=== PATIENT | female | born 1990 | race Two or more races ===

== ENCOUNTER 2020-07-26 09:57 | Emergency (ER) | payer OTHER, SELFPAY ==
[2020-07-26 11:30] VITALS: BP 135/93; PULSE 85; RESP 18; TEMP 37.1; O2SAT 98; BMI 28.3
--- NOTE | 2020-07-26 12:12 | ED_ITS ---
HPI - Allergic Reaction General Chief complaint: Allergic Reaction Stated complaint: allergic reaction Time Seen by Provider: 07/26/20 11:51 Source: patient Mode of arrival: ambulatory Limitations: no limitations History of Present Illness HPI narrative: Patient presents to ED for recurrence allergic reaction. Patient states after having dinnder on Sunday which included turkey she usually makes to eat and than she had swelling of lips and sensation of throat closing and itchy sensation 15 minutes after eating a turkey. Patient states that yesterday she has some caramel a coconut cookie at the eating she has swelling of lips itchy rash on face and sensation of throat closing. Patient states it never happened before. Patient only known allergy is to certain medication. Patient denies being on any new medications recently. MD complaint: allergic reaction Related Data Previous Rx's Medication Instructions Recorded hydroxyzine HCl 25 mg tablet 25 mg PO BEDTIME PRN 90 Days #90 03/23/20 tab etonogestrel 0.12 mg-ethinyl 1 vag ring VAGINAL .COMPLEX 21 06/30/20 estradiol 0.015 mg/24 hr vaginal Days #1 ring ring diphenhydramine HCl [Benadryl] 25 mg PO TID PRN #30 cap 07/26/20 epinephrine [EpiPen] 0.3 mg IM Q10M PRN #2 ea 07/26/20 famotidine [Pepcid] 20 mg PO BID #20 tab 07/26/20 prednisone 40 mg PO DAILY #10 tab 07/26/20 Allergies Allergy/AdvReac Type Severity Reaction Status Date / Time simethicone [From GAS-X] Allergy Intermediate HIVES Verified 07/26/20 11:30 codeine [CODEINE] Allergy Mild HIVES Verified 07/26/20 11:30 metoprolol Allergy Unknown fatigue Verified 07/26/20 11:30 1st Relief [place] Allergy Unknown unknown Uncoded 05/10/20 12:59 sensitivity to gluten Allergy Unknown Unknown Uncoded 05/10/20 12:59 Review of Systems Review of Systems: Yes all other systems are reviewed and are negative Constitutional: Constitutional: Reports as per HPI and Reports no additional constitutional complaints Eyes: Eyes: Reports as per HPI and Reports no additional eye complaints ENT: Reports system reviewed and no additional complaints, except as documented and Reports as per HPI Comments: Itchy throat, sensation of throat closing, swelling of lips Cardiovascular: Cardiovascular: Reports as per HPI and Reports no additional cardiovascular complaints Respiratory: Respiratory: Reports as per HPI and Reports no additional respiratory complaints Gastrointestinal: Gastrointestinal: Reports as per HPI and Reports no additional gastrointestinal complaints Genitourinary: Genitourinary: Reports no additional female genitourinary complaints and Reports as per HPI Musculoskeletal: Musculoskeletal: Reports no additional musculoskeletal complaints and Reports as per HPI Neurologic: Reports system reviewed and no additional complaints, except as documented and Reports as per HPI Psychiatric: Psychiatric: Reports no additional psychiatric complaints and Reports as per HPI [facility] Past Medical History Medical History (Updated 07/26/20 @ 12:20 by BARB Patterson) Adenomyosis Anxiety IBS (irritable bowel syndrome) Irregular menses Panic disorder without agoraphobia PCOS (polycystic ovarian syndrome) Vaso vagal episode Surgical History (Updated 05/04/20 @ 15:39 by HELIO Acuña) Hx of section Family History Family History (Updated 05/04/20 @ 15:42 by HELIO Acuña) Father No problems noted. Mother Breast cancer Epilepsy Maternal Grandfather Diabetes Maternal Grandmother No problems noted. Paternal Grandfather No problems noted. Paternal Grandmother Dementia Social History Social History Advance Directives: No Advance Directives Information Provided: Yes Patient : No Physical Exam Vital Signs: Vital Signs: Last Vital Signs Temp 98.7 F 07/26/20 11:30 Pulse 85 07/26/20 11:30 Resp 18 07/26/20 11:30 BP 135/93 H 07/26/20 11:30 Pulse Ox 98 07/26/20 11:30 Body Mass Index 28.3 Const: General: cooperative, healthy appearing, comfortable, no acute distress, well developed, alert and awake Orientation/consciousness: patient oriented x3 HENMT: Other: Negative for any swelling of lips. Negative for swelling of tongue. Uvula is midline. Clear lungs on auscultation. Patient is speaking in full sentences and not using accessory muscles. Head: Yes normal to inspection, Yes No palpable skull fracture present, Yes normocephalic and Yes atraumatic Eyes: General: appearance normal, both eyes and all related structures Neck: Neck: Yes normal visual inspection, Yes full ROM, Yes no lymphadenopathy, Yes no meningeal signs, Yes trachea midline, Yes supple and No tender Chest: Chest palpation & inspection: normal inspection of the chest and normal palpation of entire chest wall Resp: Effort & Inspection: normal respiratory effort and able to speak in complete sentences Auscultation: clear to auscultation bilaterally Cardio: Jugular venous distension: no JVD Heart sounds: S1 normal heart sound present and S2 normal heart sound present GI: Inspection: Yes normal to inspection and No abdominal wall ecchymosis Palpation (GI): Soft to palpation, not firm, nontender, no guarding and not r igid : General: No CVA tenderness and Yes no CVA tenderness Back/Spine/Pelvis: Back: no CVA tenderness, No CVA tenderness and No back tenderness Skin: General skin exam: no rashes or lesions noted and elasticity normal Neuro: General: patient oriented x3, no meningeal signs and CN's II-XI intact bilaterally Cranial nerves: Yes CN's II-XII intact bilaterally Extrem: General: Yes normal to inspection and Yes full ROM Psych: Appearance: grossly normal, well kempt and not disheveled Course Course Course Narrative: History states allergic reaction. Reevaluation(s) Reevaluation #1: Presently patient is not having any allergic reaction but from history seemed like patient has allergic reaction within the past 2 days. Patient will be sent home with allergy cocktail including EpiPen. Patient informed to follow-up with PCP for patch test MDM - Allergic Reaction MDM Narrative Medical decision making narrative: Allergic reaction Discharge Plan Discharge Clinical Impression: Allergic reaction Patient Disposition: Home, Self-Care Instructions: General Allergic Reaction (ED) Additional Instructions: Return to the ED immediately for shortness of breath, sensation of throat closing, swelling of lips, swelling of tongue, weakness, dizziness, chest pain, or any other concerning symptoms. Please follow-up with your PCP for referral to senior quality control inspector for patch test. EpiPen use for anaphylactic reaction. Do not inject into chest. Prescriptions: New prednisone 20 mg tablet 40 mg PO DAILY Qty: 10 RF: 0 famotidine [Pepcid] 20 mg tablet 20 mg PO BID Qty: 20 RF: 0 diphenhydramine HCl [Benadryl] 25 mg capsule 25 mg PO TID PRN (Reason: allergic reaction) Qty: 30 RF: 0 epinephrine [EpiPen] 0.3 mg/0.3 mL auto-injector 0.3 mg IM Q10M PRN (Reason: anaphylaxis) Qty: 2 RF: 0 No Action hydroxyzine HCl 25 mg tablet 25 mg PO BEDTIME PRN (Reason: anxiety) 90 Days Qty: 90 RF: 0 etonogestrel-ethinyl estradiol 0.12-0.015 mg/24 hr ring 1 vag ring vaginal .COMPLEX 21 Days Qty: 1 RF: 2 Referrals: Americo Faria, [employer] [Primary Care Provider] - 2 days (Allergic reaction. Needs patch test) Stand Alone Forms: Work/School Release Interventions: ED Discharge Assessment Last Done: 07/26/20 12:53 Discharge Date/Time: 07/26/20 12:54 Print Language: Bahamian
== END 2020-07-26 12:54 | disposition home or self-care (01) ==
PROVIDERS: Emergency Provider Emergency Medicine; PCP Nurse Practitioner Family
DX: L50.0 Allergic urticaria (principal); Z79.899 Other long term (current) drug therapy
CPT/HCPCS: 99283

== ENCOUNTER 2020-09-16 13:37 | Outpatient (REF) | payer OTHER, SELFPAY ==
[2020-09-16 15:05] LABS: MANUAL DIFF FLAG NO
[2020-09-16 15:06] LABS: Basophils Absolute Auto 0.1 X10*3/uL (0.0-0.2); Basophils Percent Auto 0.9 % (0-2); Eosinophils Absolute Auto 0.2 X10*3/uL (0.0-0.4); Eosinophils Percent Auto 2.3 % (0-4); Hematocrit 40.6 % (37-47); Hemoglobin 13.6 g/dl (12.0-16.0); Imm Gran Abs Auto 0.02 X10*3/uL (0.00-0.03); Imm Gran Pct Auto 0.3 % (0.0-0.4); Lymphocytes Absolute Auto 1.9 X10*3/uL (1.2-4.9); Lymphocytes Percent Auto 26.3 % (20-40); Mean Corpuscular HGB Conc 33.5 g/dl (31.0-35.0); Mean Corpuscular Volume 92.5 fL (80-98); Mean Platelet Volume 9.8 fL (9.4-12.3); Monocytes Absolute Auto 0.4 X10*3/uL (0.1-1.2); Monocytes Percent Auto 5.8 % (2-11); Neutrophils Absolute Auto 4.5 X10*3/uL (2.0-8.3); Neutrophils Percent Auto 64.4 % (45-73); Platelet Count 286 X10*3/uL (160-400); Red Blood Count 4.39 X10*6/uL (4.20-5.50); Red Cell Distribution Width 12.9 % (11.0-16.0)
[2020-09-16 15:34] LABS: Alanine Aminotransferase 8 U/L (0-31); Alkaline Phosphatase 55 U/L (39-117); Anion Gap 13 (12-20); Aspartate Amino Transferase 13 U/L (5-31); Bilirubin Total 0.9 mg/dL (0.0-1.0); Blood Urea Nitrogen 11 mg/dL (9-16); Calcium 9.2 mg/dL (8.4-10.2); Carbon Dioxide 23 mmol/L (22-29); Chloride 107 mmol/L (96-108); Estimated Glomerular Filt Rate > 60; Glucose Random 102 mg/dL (60-115); Potassium 3.9 mmol/L (3.3-5.1); Sodium 139 mmol/L (135-145); Total Protein 7.4 g/dL (6.5-8.0)
[2020-09-16 15:53] LABS: TSH reflex Free T4 0.73 uIU/mL (0.32-4.0)
[2020-09-23 16:08] LABS: Transglutaminase Ab IgG 1 U/mL; Transglutaminase IgA 1 U/mL
== END 2020-09-16 13:38 | disposition home or self-care (01) ==
LOC: HO.LAB 13:37
PROVIDERS: PCP Nurse Practitioner Family; Referring Provider Nurse Practitioner Family; Visit Provider Nurse Practitioner
DX: K59.04 Chronic idiopathic constipation (principal); R14.0 Abdominal distension (gaseous); Z83.71 Family history of colonic polyps; K21.9 Gastro-esophageal reflux disease without esophagitis
CPT/HCPCS: 36415; 80053; 83516; 84443; 85025

== ENCOUNTER 2020-10-04 15:14 | Outpatient (REF) | payer OTHER, SELFPAY ==
[2020-10-06 05:42] LABS: Immunoglobulin E 145 kU/L (<OR=114)
== END 2020-10-04 15:15 | disposition home or self-care (01) ==
LOC: HO.LAB 15:14
PROVIDERS: PCP Nurse Practitioner Family; Visit Provider Nurse Practitioner Family
DX: T78.1XXA Other adverse food reactions, not elsewhere classified, initial encounter (principal)
CPT/HCPCS: 36415; 82785; 83520; 86003

== ENCOUNTER → 2020-10-28 14:02 | Outpatient (BNVA) | payer OTHER, SELFPAY | PROVIDERS: PCP Nurse Practitioner Family; Visit Provider Nurse Practitioner ==

== ENCOUNTER 2020-11-30 16:47 | Outpatient (REF) | payer OTHER, SELFPAY ==
--- NOTE | ~2020-11-30 | XR_ITS ---
EXAMINATION: XR FOOT, RIGHT CLINICAL INFORMATION: Trauma, pain COMPARISON: None TECHNIQUE: AP, lateral, and oblique views of the right foot. FINDINGS: There is no acute or healing fracture, dislocation, destructive process. Bony mineralization appears normal. There is no joint narrowing or erosive changes. The subtalar joint is unremarkable. The retrocalcaneal recess is preserved. XR/XR foot RT min 3V IMPRESSION: No fracture or dislocation.
== END 2020-11-30 16:48 | disposition home or self-care (01) ==
LOC: HO.HMGCX 16:47
PROVIDERS: PCP Nurse Practitioner Family; Visit Provider Internal Medicine
DX: Z13.89 Encounter for screening for other disorder (principal)
CPT/HCPCS: 73630

== ENCOUNTER → 2021-01-27 09:24 | Outpatient (BNVA) | payer OTHER, SELFPAY | PROVIDERS: PCP Internal Medicine; Referring Provider Nurse Practitioner Family; Visit Provider Nurse Practitioner | DX: K21.9 Gastro-esophageal reflux disease without esophagitis (principal); K59.04 Chronic idiopathic constipation; K63.89 Other specified diseases of intestine; Z83.71 Family history of colonic polyps | CPT/HCPCS: 99212 ==

== ENCOUNTER → 2021-02-22 15:45 | Outpatient (BNVA) | payer OTHER, SELFPAY | PROVIDERS: PCP Internal Medicine; Referring Provider Nurse Practitioner Family; Visit Provider Nurse Practitioner | DX: K21.9 Gastro-esophageal reflux disease without esophagitis (principal); K59.04 Chronic idiopathic constipation; R10.84 Generalized abdominal pain; R14.0 Abdominal distension (gaseous) | CPT/HCPCS: 99202 ==

== ENCOUNTER 2021-04-08 08:46 | Outpatient (REF) | payer OTHER, SELFPAY ==
[2021-04-08 12:07] LABS: Alanine Aminotransferase 15 U/L (0-31); Albumin Level 4.3 g/dL (3.5-5.0); Alkaline Phosphatase 71 U/L (39-117); Anion Gap 12 (12-20); Aspartate Amino Transferase 16 U/L (5-31); Bilirubin Total 0.6 mg/dL (0.0-1.0); Blood Urea Nitrogen 15 mg/dL (9-16); Calcium 9.7 mg/dL (8.4-10.2); Carbon Dioxide 28 mmol/L (22-29); Chloride 105 mmol/L (96-108); Cholesterol 203 mg/dL; Estimated Glomerular Filt Rate > 60; Glucose Fasting 99 mg/dL (60-99); HDL Cholesterol 63 mg/dL; LDL Cholesterol Calculated 126 mg/dl; Potassium 4.5 mmol/L (3.3-5.1); Sodium 140 mmol/L (135-145); Total Protein 7.5 g/dL (6.5-8.0); Triglycerides 73 mg/dL
[2021-04-08 12:13] LABS: TSH reflex Free T4 0.98 uIU/mL (0.32-4.0)
== END 2021-04-08 08:47 | disposition home or self-care (01) ==
LOC: HO.HMGCLDS 08:46
PROVIDERS: Nurse Practitioner; PCP Nurse Practitioner Family; Visit Provider Nurse Practitioner Family
DX: K21.9 Gastro-esophageal reflux disease without esophagitis (principal)
CPT/HCPCS: 36415; 80053; 80061; 84443

== ENCOUNTER 2021-04-11 07:46 | Outpatient (REF) | payer OTHER, SELFPAY ==
[2021-04-11 12:08] LABS: Appearance Urine CLEAR; Color Urine YELLOW; Glucose Urine UA NEG (NEG); Leukocyte Esterase Urine 1+ (NEG); Nitrite Urine NEG (NEG); UACC Culture Trigger YES; Urine Blood TRACE (NEG); Urine Ketones NEG (NEG); Urine Protein NEG (NEG-TRACE)
[2021-04-11 13:09] LABS: RBC Urine 0 /HPF (0)
[2021-04-11 13:10] LABS: Bacteria Urine 1+ /LPF; Renal Epithelial Cells Urine 1+ /LPF; Squamous Epithelial Cell Urine 2+ /LPF
== END 2021-04-11 07:47 | disposition home or self-care (01) ==
LOC: HO.HMGCLNP 07:46
PROVIDERS: Visit Provider Nurse Practitioner Family
DX: K21.9 Gastro-esophageal reflux disease without esophagitis (principal); E78.5 Hyperlipidemia, unspecified; Z83.71 Family history of colonic polyps; Z80.3 Family history of malignant neoplasm of breast
CPT/HCPCS: 81001; 81003; 87086; 87147

== ENCOUNTER 2021-04-12 06:10 | Outpatient (REF) | payer OTHER, SELFPAY ==
--- NOTE | ~2021-04-12 | CT_ITS ---
EXAMINATION: CT ABDOMEN AND PELVIS WITH CONTRAST CLINICAL INFORMATION: Generalized abdominal pain. COMPARISON: None TECHNIQUE: Multidetector volumetric images were obtained from the superior aspect of the liver through the pubic symphysis following administration 85 mL of Omnipaque 350 intravenous contrast. Sagittal and coronal reformatted images were obtained on the technologist's workstation. Oral contrast: Yes This CT examination was performed using dose optimization techniques as appropriate, variously including the following: *Automated exposure control *Adjustment of mA and/or kV according to patient size (this includes techniques or standardized protocols for targeted exams where dose is matched to indication/reason for exam; i.e. extremities or head) *Use of iterative reconstruction technique DLP: 510 mGy-cm FINDINGS: LUNG BASES: The visualized lung bases are unremarkable. LIVER, GALLBLADDER, AND BILIARY TREE: The liver is normal in size and shape. The liver is low in attenuation suggestive of fatty infiltration. No focal hepatic lesion or biliary ductal dilatation is present. The gallbladder is unremarkable with no evidence of radiopaque gallstones, gallbladder wall thickening, or obvious pericholecystic inflammatory changes. PANCREAS: Unremarkable. SPLEEN: Unremarkable. ADRENAL GLANDS: Unremarkable. KIDNEYS AND URETERS: The kidneys are normal in size, shape, and attenuation. No hydronephrosis, hydroureter, or calculi are seen. No perinephric stranding. BLADDER: Unremarkable. GASTROINTESTINAL TRACT: There is stool throughout the colon questionable for constipation. The small and large bowel is otherwise unremarkable. The appendix is unremarkable. ABDOMINAL WALL: No significant hernia is appreciated. LYMPH NODES: Normal. VASCULAR: Unremarkable. PELVIC VISCERA: There are multiple high-attenuation or enhancing uterine lesions probably representing multiple fibroids. The largest measures 2 x 3 cm. OSSEOUS STRUCTURES: Unremarkable. CT/CT abdomen pelvis w con IMPRESSION: Fatty liver. Constipation. Fibroid uterus. Fleischner guidelines were followed.
[2021-04-12] MEDS: iohexoL 350 MG/ML 100 ML INFUS..BTL 85 ML IV (09:12)
[2021-04-12] MEDS: Barium Sulfate Oral (Mocha) 450 ML ORAL.SUSP 900 ML PO (09:13)
== END 2021-04-12 06:11 | disposition home or self-care (01) ==
LOC: HO.CT 06:10
PROVIDERS: Visit Provider Nurse Practitioner
DX: R10.84 Generalized abdominal pain (principal)
CPT/HCPCS: 74177; Q9967

== ENCOUNTER 2021-05-19 08:27 | Outpatient (REF) | payer OTHER, SELFPAY ==
--- NOTE | ~2021-05-19 | MM_ITS ---
EXAMINATION: MM SCREENING DIGITAL BREAST TOMOSYNTHESIS, BILATERAL CLINICAL INFORMATION: Screening. Asymptomatic. Age 31. Family history breast cancer, mother. The lifetime risk of breast cancer based on the Tyrer-Cuzick Model is 20%. COMPARISON: Bilateral targeted breast ultrasound 12/03/2015. No prior mammography. TECHNIQUE: Digital breast tomosynthesis is performed in both the craniocaudal and mediolateral oblique views along with computer-aided detection (CAD). Synthesized 2D images are generated from the tomosynthesis. FINDINGS: The breasts are heterogeneously dense, which may obscure small masses (ACR BI-RADS breast composition Category c). There are no significant masses, abnormal calcifications, or other abnormalities. No architectural abnormality. The axilla and skin contours are unremarkable. MM/MM tomosynthesis screening BI IMPRESSION: No mammographic evidence of malignancy. ASSESSMENT: BI-RADS 1: Negative RECOMMENDATION: 1. Routine annual mammography screening. 2. The lifetime risk of breast cancer based on the Tyrer-Cuzick Model is 20%. Additional annual adjunct screening with breast MRI may be of benefit in women with a risk score of 20% or greater. This patient's information was entered into a reminder system with a target due date for their next mammogram.
== END 2021-05-19 08:28 | disposition home or self-care (01) ==
LOC: HO.MAMMO 08:27
PROVIDERS: PCP Nurse Practitioner Family; Visit Provider Nurse Practitioner Family
DX: Z12.31 Encounter for screening mammogram for malignant neoplasm of breast (principal)
CPT/HCPCS: 77063; 77067

== ENCOUNTER 2021-05-28 08:37 | Outpatient (REF) | payer OTHER, SELFPAY ==
[2021-05-28 11:24] LABS: Cholesterol 171 mg/dL; HDL Cholesterol 61 mg/dL; LDL Cholesterol Calculated 98 mg/dl; Triglycerides 60 mg/dL
== END 2021-05-28 08:38 | disposition home or self-care (01) ==
LOC: HO.HMGCLDS 08:37
PROVIDERS: Visit Provider Nurse Practitioner Family
DX: E78.5 Hyperlipidemia, unspecified (principal); R13.12 Dysphagia, oropharyngeal phase; R19.8 Other specified symptoms and signs involving the digestive system and abdomen; R22.1 Localized swelling, mass and lump, neck
CPT/HCPCS: 36415; 80061

== ENCOUNTER 2021-06-21 15:35 | Outpatient (REF) | payer OTHER, SELFPAY ==
--- NOTE | ~2021-06-21 | US_ITS ---
EXAMINATION: US SOFT TISSUE OF THE NECK CLINICAL INFORMATION: Other specified symptoms and signs involving the digestive system and abdomen. COMPARISON: None TECHNIQUE: Linear transducer grayscale and color Doppler examination of the bilateral neck. FINDINGS: There are mildly enlarged lymph nodes in the left upper neck measuring 3.1 x 2.6 x 1 cm and 2.6 x 1 x 1.4 cm. 4 comparison the right side of the neck scanned there is borderline enlarged lymph node 2.8 x 1.5 x 1 cm. US/US soft tiss head and/or neck IMPRESSION: Mild bilateral cervical lymphadenopathy uncertain etiology, this could be reactive inflammatory or neoplastic.. Please correlate clinically.
== END 2021-06-21 15:36 | disposition home or self-care (01) ==
LOC: HO.US 15:35
PROVIDERS: PCP Nurse Practitioner Family; Visit Provider Physician Assistant
DX: R19.8 Other specified symptoms and signs involving the digestive system and abdomen (principal); R22.1 Localized swelling, mass and lump, neck
CPT/HCPCS: 76536

== ENCOUNTER 2021-07-06 10:42 | Outpatient (REF) | payer OTHER, SELFPAY ==
--- NOTE | ~2021-07-06 | US_ITS ---
PROCEDURE: ULTRASOUND-GUIDED LEFT CERVICAL LYMPH NODE BIOPSY CLINICAL INFORMATION: Palpable abnormality corresponding to enlarged lymph nodes with the 2 largest lymph nodes being adjacent. COMPARISON: 06/21/2021 TECHNIQUE: Ultrasound-guided fine-needle aspiration biopsy and single core biopsy. FINDINGS: Informed consent was obtained from the patient prior to the procedure. During this process, the procedure and potential alternatives were explained, along with the intended outcome and benefits. The risks of the procedure, as well as the risk of not doing the procedure, were discussed. The patient was given the opportunity to ask questions regarding the procedure and appeared competent to make medical decisions. A signed consent form which documents this discussion was placed in the medical record. Ultrasound scanning demonstrated 2 adjacent large lymph nodes corresponding to palpable abnormality about the left neck. The lymph nodes have thickened cortex of greater than 4 mm in diameter. Using sterile technique and ultrasound guidance two passes of 25-gauge hyperdermic needles were made into the more superior lymph node as well as attempted core biopsy of the superior lymph node with an 18-gauge biopsy needle. There was difficulty of the needle penetrating the lymph node capsule. A single fine-needle aspiration biopsy of the more inferior lymph node was performed. Patient tolerated procedure without difficulty. US/US biopsy lymph node IMPRESSION: Left neck enlarged cervical lymph node biopsy as described.
[2021-07-06] MEDS: Lidocaine HCl 1 % MPF 5 ML VIAL SUBCUT (12:13)
== END 2021-07-06 10:43 | disposition home or self-care (01) ==
LOC: HO.US 10:42
PROVIDERS: Radiology Diagnostic Radiology; Visit Provider Nurse Practitioner Family
DX: R22.1 Localized swelling, mass and lump, neck (principal)
CPT/HCPCS: 36415; 38505; 76942; 88172; 88173; 88177; 88184; 88185; 88305

== ENCOUNTER 2021-07-08 08:08 | Outpatient (REF) | payer OTHER, SELFPAY ==
--- NOTE | ~2021-07-08 | FL_ITS ---
EXAMINATION: XR FLUOROSCOPY UPPER GI WITH AIR CLINICAL INFORMATION: Dysphagia to solids. COMPARISON: None TECHNIQUE: Routine upper GI air-contrast study was performed. Subsequently barium-coated turkey was administered orally in upright lateral view. FINDINGS: Following oral administration of thick barium and effervescent granules there is normal propagation of bolus from the oral cavity through the pharynx, esophagus into stomach without any evidence of obstruction, narrowing or stricture. On placing patient supine and prone lying the course, caliber and peristalsis of the stomach and the duodenum is normal. The mucosal pattern of the stomach and the duodenum is normal. There is moderate gastroesophageal reflux without hiatal hernia. Following oral administration of barium-coated turkey in upright view there is normal propagation of bolus from the oral cavity through the pharynx, esophagus into stomach. FLUOROSCOPY TIME: 2.1 minutes DOSE AREA PRODUCT: 17.738 uGy-m2 (microgray-meter squared) FL/FL upper GI w air IMPRESSION: Moderate gastroesophageal reflux, otherwise unremarkable upper GI exam. There is no esophageal obstruction or narrowing on administration of barium-coated turkey as part of the swallow exam.
== END 2021-07-08 08:09 | disposition home or self-care (01) ==
LOC: HO.XRAY 08:08
PROVIDERS: Visit Provider Physician Assistant
DX: R13.12 Dysphagia, oropharyngeal phase (principal)
CPT/HCPCS: 74246

== ENCOUNTER 2021-07-13 08:52 | Outpatient (REF) | payer OTHER, SELFPAY ==
[2021-07-13 11:33] LABS: MANUAL DIFF FLAG NO
[2021-07-13 11:56] LABS: Basophils Absolute Auto 0.1 X10*3/uL (0.0-0.2); Basophils Percent Auto 1.1 % (0-2); Eosinophils Absolute Auto 0.1 X10*3/uL (0.0-0.4); Eosinophils Percent Auto 2.5 % (0-4); Hematocrit 41.4 % (37.0-47.0); Hemoglobin 13.3 g/dl (12.0-16.0); Imm Gran Abs Auto 0.02 X10*3/uL (0.00-0.03); Imm Gran Pct Auto 0.4 % (0.0-0.4); Lymphocytes Absolute Auto 1.5 X10*3/uL (1.2-4.9); Lymphocytes Percent Auto 26.8 % (20-40); Mean Corpuscular HGB Conc 32.1 g/dl (31.0-35.0); Mean Corpuscular Hemoglobin 29.8 pg (27.0-33.0); Mean Corpuscular Volume 92.8 fL (80.0-98.0); Mean Platelet Volume 10.1 fL (9.4-12.3); Monocytes Absolute Auto 0.3 X10*3/uL (0.1-1.2); Monocytes Percent Auto 5.6 % (2-11); Neutrophils Absolute Auto 3.5 x10*3/uL (2.0-8.3); Neutrophils Percent Auto 63.6 % (45-73); Platelet Count 314 X10*3/uL (160-400); Red Blood Count 4.46 X10*6/uL (4.20-5.50); Red Cell Distribution Width 12.7 % (11.0-16.0); White Blood Count 5.6 X10*3/uL (4.8-10.8)
[2021-07-13 12:14] LABS: Blood Urea Nitrogen 11 mg/dL (9-16); Estimated Glomerular Filt Rate > 60
[2021-07-13 13:12] LABS: Monotest Negative (Negative)
== END 2021-07-13 08:53 | disposition home or self-care (01) ==
LOC: HO.HMGCLDS 08:52
PROVIDERS: Absent Provider Nurse Practitioner Acute Care; PCP Nurse Practitioner Family; Visit Provider Nurse Practitioner
DX: R10.84 Generalized abdominal pain (principal); K21.9 Gastro-esophageal reflux disease without esophagitis; J03.90 Acute tonsillitis, unspecified
CPT/HCPCS: 36415; 82565; 84520; 85025; 86308

== ENCOUNTER 2021-08-17 10:07 | Day surgery (SDC) | payer OTHER, SELFPAY ==
[2021-08-11 12:20] VITALS: BMI 32.1
--- NOTE | 2021-08-16 10:26 | HO.ANESPROP2 ---
Documented by User: Debra Li NP 08/16/21 10:27 HPI - Anesthesia Eval Consult details Narrative: 31yo F for Upper Endoscopy PMFSH Active Problems Active Problems: All Active Problems (Updated 08/11/21 @ 12:20 by Rosalind Haider RN) Bloating (Acute) Anaphylactic reaction (Acute) Chronic idiopathic constipation (Acute) Family history of polyps in the colon (Acute) GERD (gastroesophageal reflux disease) (Acute) Right foot injury (Acute) Toe pain, right (Acute) Generalized abdominal pain (Acute) Physical exam (Acute) Family hx-breast malignancy (Acute) Globus sensation (Acute) Dysphagia (Acute) Mass in neck (Acute) Cervical lymphadenopathy (Acute) Acute erythematous tonsillitis (Acute) Dyslipidemia (Acute) PCOS (polycystic ovarian syndrome) (Acute) Past Medical History Medical History Adenomyosis Anxiety COVID-19 vaccine series completed Dyslipidemia IBS (irritable bowel syndrome) Irregular menses Panic disorder without agoraphobia PCOS (polycystic ovarian syndrome) Small intestinal bacterial overgrowth Vaso vagal episode Family History Family History Father No problems noted. Mother Breast cancer Epilepsy Maternal Grandfather Diabetes Maternal Grandmother No problems noted. Paternal Grandfather No problems noted. Paternal Grandmother Dementia Surgical History Surgical History Hx of section Social History Social History Housing: Apartment Patient Tobacco Use Status: Former Tobacco user e-Cigarette/Vaping Use: Never Used Advance Directives: No Advance Directives Information Provided: Yes service: No Current occupational status: employed Meds Allergies Allergy/AdvReac Type Severity Reaction Status Date / Time simethicone [From GAS-X] Allergy Intermediate HIVES Verified 07/12/21 15:54 codeine [CODEINE] Allergy Mild HIVES Verified 07/12/21 15:54 tree nut Allergy Mild mild Verified 07/12/21 15:54 metoprolol Allergy Unknown fatigue Verified 07/12/21 15:54 1st Relief [place] Allergy Unknown unknown Uncoded 07/12/21 15:54 sensitivity to gluten Allergy Unknown Unknown Uncoded 07/12/21 15:54 Home Medications Medication Instructions Recorded Confirmed Last Taken Type leuprolide 3.75 mg intramuscular mg IM 01/27/21 05/28/21 Unknown History syringe kit (Lupron Depot) propranolol 20 mg tablet 20 mg PO DAILY tab 04/11/21 05/28/21 Unknown History Exam Exam Date and Time: August 16, 2021 1026 Height,Weight and Vital Signs: Height 5 ft 2 in Weight 79.832 kg Pertinent Lab Results Pertinent Lab Results: Laboratory Tests 04/08/21 07/13/21 07/13/21 08:53 08:58 08:58 WBC 5.6 Hgb 13.3 Hct 41.4 Plt Count 314 Sodium 140 Potassium 4.5 Chloride 105 Carbon Dioxide 28 BUN 11 Creatinine 0.77 Assessment and Plan Assessment Anesthesia Assessment: Chart Reviewed Documented by User: Margaret Cooper MD 08/17/21 10:32 [facility] Past Medical History Medical History Adenomyosis Anxiety COVID-19 vaccine series completed Dyslipidemia IBS (irritable bowel syndrome) Irregular menses Panic disorder without agoraphobia PCOS (polycystic ovarian syndrome) Small intestinal bacterial overgrowth Vaso vagal episode Family History Family History Father No problems noted. Mother Breast cancer Epilepsy Maternal Grandfather Diabetes Maternal Grandmother No problems noted. Paternal Grandfather No problems noted. Paternal Grandmother Dementia Family history of problems with anesthesia: No Surgical History Surgical History Hx of section History of Problems with Anesthesia: No Social History Social History Housing: Apartment Patient Tobacco Use Status: Former Tobacco user e-Cigarette/Vaping Use: Never Used Advance Directives: No Advance Directives Information Provided: Yes service: No Current occupational status: employed Meds Allergies Allergy/AdvReac Type Severity Reaction Status Date / Time simethicone [From GAS-X] Allergy Intermediate HIVES Verified 07/12/21 15:54 codeine [CODEINE] Allergy Mild HIVES Verified 07/12/21 15:54 tree nut Allergy Mild mild Verified 07/12/21 15:54 metoprolol Allergy Unknown fatigue Verified 07/12/21 15:54 1st Relief [place] Allergy Unknown unknown Uncoded 07/12/21 15:54 sensitivity to gluten Allergy Unknown Unknown Uncoded 07/12/21 15:54 Home Medications Medication Instructions Recorded Confirmed Last Taken Type leuprolide 3.75 mg intramuscular mg IM 01/27/21 05/28/21 Unknown History syringe kit (Lupron Depot) propranolol 20 mg tablet 20 mg PO DAILY tab 04/11/21 05/28/21 Unknown History Exam Airway Mallampati Class: II TM Dist: >3cm Neck ROM: Full Heart: rrr Lungs: cta Assessment and Plan Assessment Anesthesia Assessment: Anesthesia Plan Discussed and Chart Reviewed Final Anesthetic Review Family History of Problems with Anesthesia: No History of Problems with Anesthesia: No NPO: Yes ASA Class: III Final Preanesthetic Review: No Changes in Pt Med Stat, Meds/Allgs Chart Reviewed and Consent Obtained/Reviewed Patient Risk: Intermediate Procedure Risk: Intermediate Anesthetic Plan Anesthetic Plan: MAC: Disposition: Standard PACU
--- NOTE | 2021-08-17 10:24 | MHC.SHP ---
Pre-Procedural Eval Section A Date of Service: 08/17/21 Section B Chief Complaint: reflux disease Relevant Family History (Specify if Yes): No Relevant Social History: None Present Medications: see Short Stay Collaborative assessment Medical History: Significant History (Adenomyosis Anxiety COVID-19 vaccine series completed Dyslipidemia IBS (irritable bowel syndrome) Irregular menses Panic disorder without agoraphobia PCOS (polycystic ovarian syndrome) Small intestinal bacterial overgrowth Vaso vagal episode) History of Previous Operations: Relevant previous surgery/procedure and date(s) () Allergies: Allergies Allergy/AdvReac Type Severity Reaction Status Date / Time simethicone [From GAS-X] Allergy Intermediate HIVES Verified 07/12/21 15:54 codeine [CODEINE] Allergy Mild HIVES Verified 07/12/21 15:54 tree nut Allergy Mild mild Verified 07/12/21 15:54 metoprolol Allergy Unknown fatigue Verified 07/12/21 15:54 1st Relief [place] Allergy Unknown unknown Uncoded 07/12/21 15:54 sensitivity to gluten Allergy Unknown Unknown Uncoded 07/12/21 15:54 Review of Systems Sugical H&P ROS: Negative: Constitution, Cardiovascular, Respiratory, Neurological, Psychiatric, Hem-Onc, Allergic/Immunologic, Gastrointestinal, Genitourinary, Musculoskeletal, Integumentary, Endocrine and Eyes/Ears/Nose/Throat Exam Surgical H&P Exam: Normal: HEENT, Normal: Heart, Normal: Lungs, Normal: Extremities, Normal: Abdomen, Normal: Skin and Normal: Neurological Plan Diagnosis/Plan: Unchanged I have reviewed the history and physical and performed a pertinent physical examination on my patient. No changes have occurred unless specified.
[2021-08-17 10:29] VITALS: BP 131/85; PULSE 73; RESP 16; TEMP 36.4; O2SAT 99; BMI 34.0
[2021-08-17 10:33] LABS: UPreg QC Valid YES; Urine Pregnancy NEGATIVE (NEGATIVE)
[2021-08-17] MEDS: Lactated Ringers 1,000 ML 100 ML IVCONT (10:36)
--- NOTE | 2021-08-17 10:44 | P.BOP_ITS ---
Brief Operative Note Date of Service: 08/17/21 Pre-op diagnosis: reflux Post-op diagnosis: same Procedure: see op note Surgeon: Martin Lopez MD Anesthesia: MAC Was an Print Color Operator used for this Procedure?: No Estimated blood loss (mL): 0 Condition: stable Disposition: PACU
--- NOTE | 2021-08-17 10:45 | W.PM.OPN ---
Operative Note Operative Note Date of Service: 08/17/21 Narrative: Procedure Description: EGD Indication: [] Anesthesia: MAC FLEXIBLE TRANSORAL UPPER GASTROINTESTINAL ENDOSCOPY UPPER ENDOSCOPY Consent: Indications for the procedure and potential complications of bleeding, perforation, reaction to medications and missed diagnosis were discussed with the patient and informed consent was obtained. Instrument: Olympus GIF H 190 J mid size upper endoscope Monitoring: Vital signs and clinical assessment, continuous EKG monitoring, Pulse oximetry, Carbon Dioxide monitoring and blood pressure monitoring were done throughout the procedure. Procedure: The patient was placed in the left lateral decubitis position and pre-procedure medications were administered and a bite block was placed. The endoscope was inserted into the mouth and advanced under direct vision to the third part of duodenum. A careful inspection was made as the upper endoscope was withdrawn including a retroflexed examination of the proximal stomach; Findings and interventions are described below. Findings: Larynx:normal Esophagus: GE junction at 38 cm, diaphragm hiatus at 38 cm, one singe superifical erosion noted. Bx taken from GEJ and from random esophagus in separate jars Stomach: Patchy gastric erythema. Biopsies were obtained. Grade 2 flap valve on retroflexed examination of the cardia. Pill noted in stomach, reduced gastric peristalsis. Duodenum: Normal bulb and descending duodenum, bx taken Intervention: Biopsies as noted above Impression/Findings: gastritis esophgeal erosion possible gastroparesis PLAN: await bx consider gastric emptying study if ongoing symptoms
[2021-08-17 10:59] VITALS: BP 125/76; PULSE 84; RESP 16; TEMP 37.3; O2SAT 98
[2021-08-17 11:14] VITALS: BP 133/84; PULSE 67; RESP 16; TEMP 36.9; O2SAT 98
== END 2021-08-17 11:47 | disposition home or self-care (01) ==
PROVIDERS: Nurse Practitioner; PCP Nurse Practitioner Family; Visit Provider Internal Medicine Gastroenterology
PROC: 0DJ08ZZ Inspection of Upper Intestinal Tract, Via Natural or Artificial Opening Endoscopic (ICD-10-PCS; CPT 43235; principal; 2021-08-17 11:00)
DX: K21.9 Gastro-esophageal reflux disease without esophagitis (principal); K29.50 Unspecified chronic gastritis without bleeding; K22.10 Ulcer of esophagus without bleeding; K44.9 Diaphragmatic hernia without obstruction or gangrene; R20.0 Anesthesia of skin; I95.1 Orthostatic hypotension; R00.2 Palpitations; Z79.899 Other long term (current) drug therapy; Z88.8 Allergy status to other drugs, medicaments and biological substances; Z87.891 Personal history of nicotine dependence
CPT/HCPCS: 43239; 81025; 88305; 88342

== ENCOUNTER → 2021-09-01 15:57 | Outpatient (BNVA) | payer OTHER, SELFPAY | PROVIDERS: PCP Nurse Practitioner Family; Visit Provider Nurse Practitioner | DX: K21.9 Gastro-esophageal reflux disease without esophagitis (principal); K30 Functional dyspepsia; K59.04 Chronic idiopathic constipation; R14.0 Abdominal distension (gaseous) | CPT/HCPCS: 99212 ==

== ENCOUNTER → 2021-11-08 07:44 | Outpatient (REF) | payer OTHER, SELFPAY ==
--- NOTE | ~2021-11-08 | NM_ITS ---
EXAMINATION: RADIONUCLIDE SOLID FOOD GASTRIC EMPTYING 4-HOUR STUDY CLINICAL INFORMATION: Abdominal distention. COMPARISON: No previous gastric emptying study is available for comparison. TECHNIQUE: A standard meal consisting of 4 oz of Egg Beaters brand tagged with 1 mCi Tc-99m Sulfur Colloid, 8 oz water and 2 slices of toast with jelly was administered orally to the patient. Images were obtained using a dual head gamma camera in the anterior and posterior projections over of the stomach immediately post ingestion and at hourly intervals up to 3 hours post ingestion. Images were not obtained at 4 hours due to the minimal retention at 3 hours. The anterior and posterior counts at each time interval were averaged using the geometric mean and expressed as percentage of the immediate post ingestion counts. FINDINGS: There is good visualization of activity in the stomach immediately post ingestion. As the study progresses, there is good clearance of activity from the stomach and visualization of progressively increasing small bowel activity. By the end of the study, there is almost no retention noted in the stomach. Retention in the stomach at each time interval was: 1 hour 33% (normal 37%-90%) 2 hours 12% (normal 30%-60%) 3 hours 8% 4 hours (Not Obtained) (normal 0%-10%) NM/NM gastric emptying study IMPRESSION: Normal solid food gastric emptying study.
== END ==
LOC: HO.NUCMED 07:44
PROVIDERS: Visit Provider Internal Medicine Gastroenterology
DX: R14.0 Abdominal distension (gaseous) (principal); K21.9 Gastro-esophageal reflux disease without esophagitis; K59.04 Chronic idiopathic constipation
CPT/HCPCS: 78264; 99212; A9541

== ENCOUNTER 2022-03-31 11:13 | Outpatient (REF) | payer OTHER, SELFPAY ==
[2022-03-31 12:35] LABS: Influenza A PCR NEGATIVE (Negative); Influenza B PCR NEGATIVE (Negative); Resp Syncy Virus RNA Qual PCR NEGATIVE (Negative); SARS COV2 PCR INHOUSE NEGATIVE (Negative)
== END 2022-03-31 11:14 | disposition home or self-care (01) ==
LOC: HO.LNP 11:13
PROVIDERS: Visit Provider Nurse Practitioner Family
DX: R09.89 Other specified symptoms and signs involving the circulatory and respiratory systems (principal); Z20.822 Contact with and (suspected) exposure to COVID-19
CPT/HCPCS: 0241U

== ENCOUNTER 2022-05-25 08:02 | Outpatient (REF) | payer OTHER, SELFPAY ==
--- NOTE | ~2022-05-25 | MM_ITS ---
EXAMINATION: MM SCREENING DIGITAL BREAST TOMOSYNTHESIS, BILATERAL CLINICAL INFORMATION: Screening. Asymptomatic. The lifetime risk of breast cancer based on the Tyrer-Cuzick Model is 22.7%. Additional annual screening with breast MRI may be of benefit in women with a Rhea Score of 20% or greater. COMPARISON: Mammography: May 19, 2021 TECHNIQUE: Digital breast tomosynthesis is performed in both the craniocaudal and mediolateral oblique views along with computer-aided detection (CAD). Synthesized 2D images are generated from the tomosynthesis. FINDINGS: The breasts are heterogeneously dense, which may obscure small masses (ACR BI-RADS breast composition Category c). There are no significant masses, abnormal calcifications, or other abnormalities. MM/MM tomosynthesis screening BI IMPRESSION: No significant changes from prior exam. ASSESSMENT: BI-RADS 1: Negative RECOMMENDATION: Routine annual mammography screening. This patient's information was entered into a reminder system with a target due date for their next mammogram.
== END 2022-05-25 08:03 | disposition home or self-care (01) ==
LOC: HO.MAMMO 08:02
PROVIDERS: PCP Nurse Practitioner Family; Visit Provider Nurse Practitioner Family
DX: Z12.31 Encounter for screening mammogram for malignant neoplasm of breast (principal)
CPT/HCPCS: 77063; 77067

== ENCOUNTER 2022-11-01 10:00 | Outpatient (RCR) | payer OTHER, SELFPAY ==
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
--- NOTE | 2022-11-29 10:13 | MHC.PT.DC ---
[facility] [place] Office [place] Office [place] Office [address] Elizabet Hoffmann [address] [phone] F: [phone] F: [phone] F: [phone] F: [phone] Physical Therapy Discharge Report Diagnosis: This is a 32 yo female presenting to skilled PT with a script for cervicalgia. Date of Surgery: Date of Evaluation: 10/16/22 Date of Discharge: 11/29/22 Treatments to Date: 4 Cancellations to Date: 0 No Shows to Date: 0 Discharge Status: Patient Elected to Stop Recommend MD Follow-up Discharge Summary: At our last appointment, patient reporting nausea as well as pain at arrival. She tolerates very little and needs reminders to count sets and reps to not over do exercises. States that she tried the self SOR at home and this hurt more. She did not feel like the tens unit was helpful last time so we held this. Furthermore, patient did not tolerate light manual soft tissue either. Pain felt like it was just spreading with our light treatment session, could not tolerate full sessions and felt like PT was making her worse. She states that she has been getting low back symptoms, I educated her to talk with her PCP about this. Due to her reports that PT was not helping her and was actually making her worse, we decided to DC PT at this time. Electronically signed by: Adilene Andrea, PT Please sign and return to therapist. Thank you for your referral.
== END 2022-11-29 10:13 | disposition home or self-care (01) ==
LOC: HO.PTCHIC 10:00
PROVIDERS: PCP Nurse Practitioner Family; Visit Provider Nurse Practitioner Family
DX: M54.2 Cervicalgia (principal); V89.2XXD Person injured in unspecified motor-vehicle accident, traffic, subsequent encounter
CPT/HCPCS: 97014; 97110; 97140; 97162

== ENCOUNTER 2022-11-23 09:22 | Outpatient (AMB) | payer OTHER, SELFPAY ==
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
[2022-11-23 10:55] VITALS: BP 120/80; PULSE 78; O2SAT 99; BMI 34.9
== END 2022-11-23 11:39 | disposition home or self-care (01) ==
PROVIDERS: PCP Nurse Practitioner Family; Visit Provider Physician Assistant
DX: M54.50 Low back pain, unspecified (principal)
CPT/HCPCS: 99213

== ENCOUNTER 2022-11-30 15:44 | Outpatient (AMB) | payer OTHER, SELFPAY ==
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
[2022-11-30 15:50] VITALS: BP 112/80; PULSE 78; O2SAT 98; BMI 35.3
== END 2022-11-30 17:14 | disposition home or self-care (01) ==
PROVIDERS: PCP Nurse Practitioner Family; Visit Provider Nurse Practitioner Family
DX: M50.90 Cervical disc disorder, unspecified, unspecified cervical region (principal); V89.2XXA Person injured in unspecified motor-vehicle accident, traffic, initial encounter; S06.0XAA Concussion with loss of consciousness status unknown, initial encounter; M54.50 Low back pain, unspecified
CPT/HCPCS: 99213

== ENCOUNTER 2022-12-20 08:58 | Outpatient (AMB) | payer OTHER, SELFPAY ==
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
[2022-12-20 09:03] VITALS: BP 124/86; PULSE 91; BMI 35.8
== END 2022-12-20 10:36 | disposition home or self-care (01) ==
PROVIDERS: PCP Nurse Practitioner Family; Visit Provider Nurse Practitioner
DX: K59.04 Chronic idiopathic constipation (principal); K21.9 Gastro-esophageal reflux disease without esophagitis
CPT/HCPCS: 99213

== ENCOUNTER → 2022-12-20 08:58 | Outpatient (BNVA) | payer OTHER, SELFPAY | PROVIDERS: PCP Nurse Practitioner Family; Visit Provider Nurse Practitioner | DX: K59.04 Chronic idiopathic constipation (principal); K21.9 Gastro-esophageal reflux disease without esophagitis; Z79.899 Other long term (current) drug therapy | CPT/HCPCS: 99212 ==

== ENCOUNTER 2023-01-31 18:09 | Outpatient (REF) | payer OTHER, SELFPAY ==
--- NOTE | ~2023-01-31 | MR_ITS ---
EXAMINATION: MR CERVICAL SPINE WITHOUT CONTRAST CLINICAL INFORMATION: Cervicalgia, cervical disc disorder COMPARISON: Cervical radiographs 7-14 TECHNIQUE: MRI of the cervical spine was obtained using routine sequences without contrast. FINDINGS: Reversal of normal cervical lordosis. Trace anterolisthesis of C4-C5. Cervical vertebral body heights are maintained. No expansile or destructive osseous lesion. The cervical spinal cord is normal in signal. There is no epidural collection or mass. C2-C3: No significant spinal canal or neural foraminal stenosis. C3-C4: No significant spinal canal or neural foraminal stenosis. C4-C5: No significant spinal canal or neural foraminal stenosis. C5-C6: No significant spinal canal or neural foraminal stenosis. C6-C7: No significant spinal canal or neural foraminal stenosis. C7-T1: No significant spinal canal or neural foraminal stenosis. MR/MR cervical spine wo con IMPRESSION: Reversal of the normal cervical lordosis. No significant spinal canal or neural foraminal stenosis in the cervical spine.
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
== END 2023-01-31 18:10 | disposition home or self-care (01) ==
LOC: HO.MRI 18:09
PROVIDERS: Visit Provider Nurse Practitioner Family
DX: M54.50 Low back pain, unspecified (principal); M50.90 Cervical disc disorder, unspecified, unspecified cervical region; V89.2XXA Person injured in unspecified motor-vehicle accident, traffic, initial encounter
CPT/HCPCS: 72141; 72148

== ENCOUNTER 2023-02-15 08:50 | Outpatient (AMB) | payer OTHER, SELFPAY ==
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
[2023-02-15 08:58] VITALS: BP 120/72; PULSE 64; O2SAT 99; BMI 34.9
== END 2023-02-15 11:29 | disposition home or self-care (01) ==
PROVIDERS: PCP Nurse Practitioner Family; Visit Provider Nurse Practitioner Family
DX: M54.2 Cervicalgia (principal); M54.50 Low back pain, unspecified; V89.2XXA Person injured in unspecified motor-vehicle accident, traffic, initial encounter
CPT/HCPCS: 99213

== ENCOUNTER 2023-03-16 09:54 | Outpatient (AMB) | payer OTHER, SELFPAY ==
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
== END 2023-03-16 10:40 | disposition home or self-care (01) ==
PROVIDERS: PCP Nurse Practitioner Family; Referring Provider Nurse Practitioner Family; Visit Provider Physician Assistant
DX: R29.898 Other symptoms and signs involving the musculoskeletal system (principal)
CPT/HCPCS: 99204

== ENCOUNTER → 2023-03-16 09:54 | Outpatient (BNVA) | payer OTHER, SELFPAY | PROVIDERS: PCP Nurse Practitioner Family; Visit Provider Physician Assistant ==

== ENCOUNTER 2023-03-28 09:59 | Outpatient (AMB) | payer OTHER, SELFPAY ==
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
[2023-03-28 10:14] VITALS: BP 110/82; PULSE 73; O2SAT 98; BMI 34.9
== END 2023-03-28 11:45 | disposition home or self-care (01) ==
PROVIDERS: PCP Nurse Practitioner Family; Visit Provider Nurse Practitioner Family
DX: G51.32 Clonic hemifacial spasm, left (principal); F07.81 Postconcussional syndrome; G44.309 Post-traumatic headache, unspecified, not intractable; G44.84 Primary exertional headache
CPT/HCPCS: 99204

== ENCOUNTER → 2023-03-28 09:59 | Outpatient (BNVA) | payer OTHER, SELFPAY | PROVIDERS: PCP Nurse Practitioner Family; Visit Provider Nurse Practitioner Family ==

== ENCOUNTER 2023-05-11 15:52 | Outpatient (REF) | payer OTHER, SELFPAY ==
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
[2023-05-11] MEDS: gadobutroL 10 ML VIAL IVPUSH (17:34)
== END 2023-05-11 15:53 | disposition home or self-care (01) ==
LOC: HO.MRI 15:52
PROVIDERS: PCP Nurse Practitioner Family; Visit Provider Physician Assistant
DX: R29.898 Other symptoms and signs involving the musculoskeletal system (principal); G51.32 Clonic hemifacial spasm, left; G44.309 Post-traumatic headache, unspecified, not intractable
CPT/HCPCS: 70553; 72146; A9585

== ENCOUNTER 2023-05-31 15:24 | Outpatient (REF) | payer OTHER, SELFPAY ==
--- NOTE | ~2023-05-31 | MM_ITS ---
EXAMINATION: MM SCREENING DIGITAL BREAST TOMOSYNTHESIS, BILATERAL CLINICAL INFORMATION: Screening. Asymptomatic. Family history breast cancer, mother. COMPARISON: Mammography: 05/25/2022, 05/19/2021. TECHNIQUE: Digital breast tomosynthesis is performed in both the craniocaudal and mediolateral oblique views along with computer-aided detection (CAD). Synthesized 2D images are generated from the tomosynthesis. FINDINGS: The breasts are heterogeneously dense, which may obscure small masses (ACR BI-RADS breast composition Category c). There are no suspicious masses, suspicious grouped calcifications, or areas of architectural distortion in either breast. The parenchymal pattern is stable from prior exams. No skin or axillary abnormalities. MM/MM tomosynthesis screening BI IMPRESSION: No mammographic evidence of malignancy. ASSESSMENT: BI-RADS BI-RADS 1 - Negative RECOMMENDATION: Routine annual mammography screening. 1 year F/U The lifetime risk of breast cancer based on the Tyrer-Cuzick Model is 20%. Additional annual adjunct screening with breast MRI may be of benefit in women with a risk score of 20% or greater. This examination should not preclude the clinical evaluation of a suspicious palpable abnormality. This patient's information was entered into a reminder system with a target due date for their next mammogram.
== END 2023-05-31 15:25 | disposition home or self-care (01) ==
LOC: HO.MAMMO 15:24
PROVIDERS: PCP Nurse Practitioner Family; Visit Provider Nurse Practitioner Family
DX: Z12.31 Encounter for screening mammogram for malignant neoplasm of breast (principal)
CPT/HCPCS: 77063; 77067

== ENCOUNTER → 2023-05-31 15:30 | Outpatient (BNV) | payer OTHER, SELFPAY | PROVIDERS: PCP Nurse Practitioner Family; Visit Provider Radiology Diagnostic Radiology | DX: Z12.31 Encounter for screening mammogram for malignant neoplasm of breast (principal) | CPT/HCPCS: 77063; 77067 ==

== ENCOUNTER 2023-06-04 15:27 | Outpatient (AMB) | payer OTHER, SELFPAY ==
[2023-06-04 15:34] VITALS: BP 120/74; PULSE 92; O2SAT 97; BMI 35.7
--- NOTE | 2023-06-04 15:34 | MHC.PC.OV ---
Vital Signs 06/04/23 15:34 Height 5 ft 2 in Weight 195 lb BMI 35.7 BP 120/74 Blood Pressure Location Lt brachial Position Sitting Pulse 92 Pulse Source Pulse Oximeter Pulse Oximetry (%) 97 Oxygen Delivery Method Room Air Intake Visit Reasons: Annual PE Intake Note: Pt is here today for PE. Allergies simethicone [From GAS-X] Allergy (Intermediate, Verified 06/04/23 15:56) HIVES codeine [CODEINE] Allergy (Mild, Verified 06/04/23 15:56) HIVES tree nut Allergy (Mild, Verified 06/04/23 15:56) mild metoprolol Allergy (Unknown, Verified 06/04/23 15:56) fatigue 1st Relief [place] Allergy (Unknown, Uncoded 06/04/23 15:56) unknown sensitivity to gluten Allergy (Unknown, Uncoded 06/04/23 15:56) Unknown Medication List - Last Reconciled 06/04/23 by SYLVIA Gant-LINETTE albuterol sulfate 90 mcg/actuation 1 inh inhalation QID PRN duloxetine 20 mg PO DAILY epinephrine (EpiPen) 0.3 mg (0.3 mL) IM Q10M PRN hydroxyzine pamoate 25 mg PO BID linaclotide (Linzess) 290 mcg PO QAM 30 days magnesium 250 mg PO DAILY omeprazole 40 mg PO BID spironolactone 50 mg PO BID Tobacco use date assessed: 06/04/23 Dental Screening Dental Screen Date: 06/04/23 Did you have a dental visit in the last 12 months?: No Did you have a dental problem in the last 6 months where you did not have access to dental care?: Yes Was dental information given to patient?: Yes HPI Annual PE HPI Details Pt is here for a PE. Labs have already been ordered, encouraged pt to have these drawn. 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 [facility] Medical History Esophageal erosions COVID-19 vaccine series completed Dyslipidemia Small intestinal bacterial overgrowth Vaso vagal episode Anxiety PCOS (polycystic ovarian syndrome) Irregular menses Panic disorder without agoraphobia Adenomyosis IBS (irritable bowel syndrome) Surgical History History of esophagogastroduodenoscopy (EGD) Hx of section Family History Father No problems noted. Mother Breast cancer Epilepsy Maternal Grandfather Diabetes Maternal Grandmother No problems noted. Paternal Grandfather No problems noted. Paternal Grandmother Dementia Social History Housing: Apartment Patient Tobacco Use Status: Former Tobacco user Quit Date: 13 yr ago e-Cigarette/Vaping Use: Never Used service: No Current occupational status: employed Cognitive needs: No Hearing needs: No Vision needs: No Questionnaire PHQ-9 Over the last 2 weeks, how often have you been bothered by any of the following problems? 1. Little interest or pleasure in doing things: several days 2. Feeling down, depressed, or hopeless: several days 3. Trouble falling or staying asleep, or sleeping too much: more than half the days 4. Feeling tired or having little energy: nearly every day 5. Poor appetite or overeating: nearly every day 6. Feeling bad about yourself - or that you are a failure or have let yourself or your family down: not at all 7. Trouble concentrating on things, such as reading the newspaper or watching television: nearly every day 8. Moving or speaking so slowly that other people could have noticed. Or the opposite - being so fidgety or restless that you have been moving around a lot more than usual: not at all 9. Thoughts that you would be better off or of hurting yourself in some way: not at all Total score: 13 Depression Screening Interpretation: Positive Depression Screening Done: Yes 82844 - PHQ-9 Billing: Yes Source: Developed by Drs. Marco Antonio Morales, Thelma Mancia, Honorio Miranda and colleagues, with an educational mahesh from [employer]. Thrive Questionnaire Date Thrive assessed: 06/04/23 I am a: Patient What is your living situation today?: I have a steady place to live Within the past 12 months, did the food you bought not last and you didn't have the money to get more?: Never true Within the past 12 months, did you worry whether your food would run out before you got money to buy more?: Never true Do you have trouble paying for medicines?: No Do you have trouble getting transportation to medical appointments?: No Do you have trouble paying your heating and electricity bill?: No Do you have trouble taking care of your child, family member or friend?: No Do you have trouble with day-to-day activities such as bathing, preparing meals, shopping, managing finances, etc.?: No Are you currently unemployed and looking for a job?: No Are you interested in more education?: No Please select the resources that you would like help with: None THRIVE Score: 0 AUDIT C Alcohol Use Questionnaire (AUDIT-C) 1. How often do you have a drink containing alcohol?: Monthly or less 2. How many drinks containing alcohol do you have on a typical day when you are drinking?: 1 or 2 3. How often do you have six or more drinks on one occasion?: Never Total Score: 1 SHARONDA-7 AMB Questionnaire SHARONDA-7 Date SHARONDA - 7 assessed: 06/04/23 Feeling nervous, anxious, or on edge: 1 = Several days Not being able to stop or control worryin = Nearly every day Worrying too much about different things: 1 = Several days Trouble relaxin = Several days Being so restless that it is hard to sit still: 0 = Not at all Becoming easily annoyed or irritable: 0 = Not at all Feeling afraid as if something awful might happen: 3 = Nearly every day Total SHARONDA-7 score (0-4 normal; 5-9 mild; 10-14 moderate; 15-21 severe): 9 Source: Developed by Drs. Marco Antonio Morales, Thelma Mancia, Honorio Miranda and colleagues, with an educational mahesh from [employer]. Review of Systems Const Denies chills and Denies fever(s) Eyes Denies blurry vision ENT Denies vertigo, Denies dizziness and Denies sore throat Card Denies chest pain at rest, Denies chest pain with activity, Denies diaphoresis, Denies dyspnea and Denies dyspnea on exertion Resp Denies cough, Denies dyspnea, Denies dyspnea on exertion and Denies wheezing GI Denies abdominal pain, Denies melena, Denies hematochezia, Denies constipation, Denies diarrhea and Denies loose stools Denies hematuria Musc Denies numbness and Denies tingling Skin/Breast Denies lesions Neuro Denies vertigo, Denies dizziness, Denies numbness and Denies tingling Psych Denies anxiety, Denies depression, Denies homicidal ideation, Denies suicidal ideation and Denies other (substance abuse) Aller/Immun Denies wheezing Physical exam (Primary Care) Vital Signs: Last Vital Signs Pulse 92 06/04/23 15:34 BP 120/74 06/04/23 15:34 Pulse Ox 97 06/04/23 15:34 Oxygen Delivery Method Room Air 06/04/23 15:34 BMI result Body Mass Index 35.7 Tobacco/Smoking Status: Tobacco use Status Tobacco use date assessed 06/04/23 06/04/23 15:41 Patient Tobacco Use Status Former Tobacco user 06/04/23 15:41 e-Cigarette/Vaping Use Never Used 06/04/23 15:41 PHQ-9: PHQ-9 Score PHQ-9: Total score 13 06/04/23 16:00 Depression Screening Interpretation: Positive Thrive Assessment: Date of Thrive Assessment Date Thrive assessed 06/04/23 06/04/23 16:00 Const General: cooperative Nutritional Appearance: obese Orientation/consciousness: patient oriented x3 HENMT Head: Yes normal to inspection, Yes normocephalic and Yes atraumatic Ears: TM's normal bilaterally Eyes General: appearance normal, both eyes and all related structures Alignment and Position: alignment normal and position normal Neck Neck: Yes normal visual inspection and Yes no lymphadenopathy Thyroid: Thyroid normal Resp Effort & Inspection: normal respiratory effort Auscultation: clear to auscultation bilaterally Cardio Rate: regular rate Rhythm: regular rhythm Heart sounds: S1 normal heart sound present, S2 normal heart sound present and no murmurs GI Palpation (GI): Soft to palpation and nontender Auscultation: normal bowel sounds Skin Rashes: no rashes Neuro General: patient oriented x3, moves all extremities, no focal motor deficits and deep tendon reflexes 2+ bilaterally Romberg Test: Negative Psych Appearance: grossly normal Mental Status: mental status grossly normal Speech and movement: Normal speech and movement present Affect: normal affect Attitude: cooperative Thought process: Normal thought process present Thought content: Normal thought content present Insight: Good insight present (Psych) Judgement: Good judgement present (Psych) Assessment and Plan Assessment & Plan (1) Physical exam: Code(s): Z00.00 - Encounter for general adult medical examination without abnormal findings Plan The patient agreed to the use of a medical records custodian for this encounter. Scribed for DONNELL Louis by Naina Jefferson medical records custodian, on 06/04/2023 at 15:55 EST. Coding Level of Care Code Est Pt Prev Care 18-39y(81238) Diagnoses Physical exam Z00.00
== END 2023-06-04 16:38 | disposition home or self-care (01) ==
PROVIDERS: Visit Provider Nurse Practitioner Family
DX: Z00.00 Encounter for general adult medical examination without abnormal findings (principal)
CPT/HCPCS: 99395

== ENCOUNTER 2023-06-21 15:22 | Outpatient (AMB) | payer OTHER, SELFPAY ==
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
[2023-06-21 15:32] VITALS: BP 131/74; PULSE 80; BMI 35.8
== END 2023-06-21 15:54 | disposition home or self-care (01) ==
PROVIDERS: PCP Nurse Practitioner Family; Visit Provider Nurse Practitioner
DX: K59.04 Chronic idiopathic constipation (principal); K21.9 Gastro-esophageal reflux disease without esophagitis
CPT/HCPCS: 99213

== ENCOUNTER → 2023-06-21 15:22 | Outpatient (BNVA) | payer OTHER, SELFPAY | PROVIDERS: PCP Nurse Practitioner Family; Visit Provider Nurse Practitioner | DX: K59.04 Chronic idiopathic constipation (principal); K21.9 Gastro-esophageal reflux disease without esophagitis; Z79.899 Other long term (current) drug therapy | CPT/HCPCS: 99212 ==

== ENCOUNTER 2023-07-14 09:07 | Outpatient (REF) | payer OTHER, SELFPAY ==
[2023-07-14 11:44] LABS: MANUAL DIFF FLAG NO
[2023-07-14 11:48] LABS: Basophils Absolute Auto 0.1 X10*3/uL (0.0-0.2); Basophils Percent Auto 0.8 % (0-2); Eosinophils Absolute Auto 0.2 X10*3/uL (0.0-0.4); Eosinophils Percent Auto 2.8 % (0-4); Hematocrit 42.2 % (37.0-47.0); Hemoglobin 13.9 g/dl (12.0-16.0); Imm Gran Abs Auto 0.02 X10*3/uL (0.00-0.03); Imm Gran Pct Auto 0.3 % (0.0-0.4); Lymphocytes Absolute Auto 1.6 X10*3/uL (1.2-4.9); Lymphocytes Percent Auto 26.5 % (20-40); Mean Corpuscular HGB Conc 32.9 g/dl (31.0-35.0); Mean Corpuscular Hemoglobin 29.1 pg (27.0-33.0); Mean Corpuscular Volume 88.5 fL (80.0-98.0); Mean Platelet Volume 9.8 fL (9.4-12.3); Monocytes Absolute Auto 0.4 X10*3/uL (0.1-1.2); Neutrophils Absolute Auto 3.8 x10*3/uL (2.0-8.3); Neutrophils Percent Auto 62.6 % (45-73); Platelet Count 328 X10*3/uL (160-400); Red Blood Count 4.77 X10*6/uL (4.20-5.50); Red Cell Distribution Width 13.1 % (11.0-16.0)
[2023-07-14 12:13] LABS: Alanine Aminotransferase 34 U/L (0-31); Albumin Level 4.2 g/dL (3.5-5.0); Alkaline Phosphatase 88 U/L (39-117); Anion Gap 12 (12-20); Aspartate Amino Transferase 25 U/L (5-31); Bilirubin Total 0.7 mg/dL (0.0-1.0); Blood Urea Nitrogen 12 mg/dL (9-16); Calcium 9.5 mg/dL (8.4-10.2); Carbon Dioxide 27 mmol/L (22-29); Chloride 103 mmol/L (96-108); Cholesterol 207 mg/dL (<200); Estimated Glomerular Filt Rate > 60; Glucose Fasting 97 mg/dL (60-99); HDL Cholesterol 59 mg/dL (>40); LDL Cholesterol Calculated 125 mg/dL (<100); Potassium 4.2 mmol/L (3.3-5.1); Sodium 138 mmol/L (135-145); Total Protein 8.1 g/dL (6.5-8.0); Triglycerides 116 mg/dL (<150)
[2023-07-14 12:32] LABS: TSH reflex Free T4 1.02 uIU/mL (0.32-4.0)
== END 2023-07-14 09:08 | disposition home or self-care (01) ==
LOC: HO.HMGCLDS 09:07
PROVIDERS: PCP Nurse Practitioner Family; Visit Provider Nurse Practitioner Family
DX: Z00.00 Encounter for general adult medical examination without abnormal findings (principal); J03.90 Acute tonsillitis, unspecified
CPT/HCPCS: 36415; 80053; 80061; 84443; 85025

== ENCOUNTER 2023-09-24 15:26 | Outpatient (AMB) | payer OTHER, SELFPAY ==
[2023-09-24 15:31] VITALS: BP 136/96; PULSE 96; O2SAT 98; BMI 36.2
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
[2023-09-24 16:32] VITALS: BP 134/86
== END 2023-09-24 17:26 | disposition home or self-care (01) ==
PROVIDERS: PCP Nurse Practitioner Family; Visit Provider Nurse Practitioner Family
DX: M25.551 Pain in right hip (principal); V89.2XXA Person injured in unspecified motor-vehicle accident, traffic, initial encounter; Z04.3 Encounter for examination and observation following other accident
CPT/HCPCS: 99213

== ENCOUNTER 2023-10-10 12:33 | Outpatient (RCR) | payer OTHER, SELFPAY ==
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
== END 2024-02-29 13:55 | disposition still patient (30) ==
LOC: HO.SH 12:33
PROVIDERS: PCP Nurse Practitioner Family; Visit Provider Nurse Practitioner Family
DX: F07.81 Postconcussional syndrome (principal); F09 Unspecified mental disorder due to known physiological condition
CPT/HCPCS: 96125

== ENCOUNTER 2024-04-03 13:50 | Emergency (ER) | payer OTHER, SELFPAY ==
[2024-04-03 13:59] VITALS: BP 138/88; PULSE 86; RESP 16; TEMP 37; O2SAT 98; BMI 37.7
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
[2024-04-03] MEDS: Famotidine/PF 20 MG/2 ML VIAL IVPUSH (14:15)
[2024-04-03] MEDS: methylPREDNISolone Sod Succ 125 MG/2 ML VIAL IVPUSH (14:15)
[2024-04-03] MEDS: diphenhydrAMINE HCL 50 MG/ML VIAL IVPUSH (14:15)
[2024-04-03 15:18] VITALS: BP 114/73; PULSE 77; RESP 18; TEMP 36.9; O2SAT 100
--- NOTE | 2024-04-03 15:22 | PC.NURSE ---
Assumed care of this patient at 1500, patient continues to feel itchy/hot face/reddened cheeks, otherwise VSS denies pain.
[2024-04-03 16:43] VITALS: BP 119/81; PULSE 82; RESP 18; TEMP 36.6; O2SAT 99
== END 2024-04-03 16:45 | disposition home or self-care (01) ==
PROVIDERS: Emergency Provider Student in an Organized Health Care Education/Training Program; PCP Nurse Practitioner Family
DX: L27.2 Dermatitis due to ingested food (principal); T78.05XA Anaphylactic reaction due to tree nuts and seeds, initial encounter; Z79.899 Other long term (current) drug therapy; Z87.891 Personal history of nicotine dependence
CPT/HCPCS: 96374; 96375; 99284; J1200; J2919

== ENCOUNTER 2024-04-08 07:16 | Outpatient (AMB) | payer OTHER, SELFPAY ==
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
== END 2024-04-08 08:38 | disposition home or self-care (01) ==
LOC: HO.HMCC 07:16
PROVIDERS: PCP Nurse Practitioner Family; Visit Provider Nurse Practitioner Family
DX: E28.2 Polycystic ovarian syndrome (principal); V89.2XXA Person injured in unspecified motor-vehicle accident, traffic, initial encounter

== ENCOUNTER 2024-06-02 15:16 | Outpatient (REF) | payer OTHER, SELFPAY ==
--- OUTSIDE RECORDS SUMMARY | 2024-06-02 17:47 | XMS_ITS | Clinical Summary ---
Author Organization [facility] Address [address] [place] [id number] Phone Care Team Providers Care Rent And Housing Investigator Name Role Phone Unavailable Primary Care Provider Unavailabl e Immunizations Immunization Administration Dates Next Due DTP 02/02/1993, 0,1988,08/30,1988 Hep B, ped/adol 12/10/2000,09/10/2000,08/08/2000 Hib (PRP-T) 10/04/1989 MMR 08/08/2000,07/05/1989 Meningococcal Conj (Menactra) MCV4P 03/27/2006 OPV 02/02/1993, 0,1988,06/27 Td (adult) (MBL), 2 Lf tetan us toxoid, PF, adsorbed 08/08/2000 Family History Relation Name Status Comments Mother Alive Mother: Seizure disorder Other Family history of Strabismus/amblyopia, Family history of Seizure disorder Sister 1 Alive Sister: Alive a nd well, Alive and well Sister 2 Alive Sister: Alive a nd well, Alive and well Social History Tobacco Use Types Packs/Day Years Used Date Smoking Tobacco: Never Assessed Comments Unknown Sex and Gender Information Value Date Recorded Sex Assigned at Not on file Legal Sex Female 4:16 PM EDT Gender Identity Not on file Sexual Orientation Not on file Plan of Treatment Health Maintenance Due Date Last Done Comments DTaP,Tdap,and Td Vaccines (6 - Tdap) 08/09/2000 08/08/2000, 02/02/1993, 10/04/1989, Additional history exists Varicella Vaccines (1 of 2 - 13+ 2-dose series) 2001 Consider Men B Vaccine (1 of 2 - Bexsero 2-dose series) 2004 Influenza Vaccines (#1) 2023 COVID-19 Vaccine (2023- season) 2023 HIB Vaccines Completed 10/04/1989 IPV Vaccines Completed 02/02/1993, 09/16, 1988, Additional history exists MMR Vaccines Completed 08/08/2000, 07/05/1989 Hepatitis B Vaccines Completed 12/10/2000, 09/10/2000, 08/08/2000 Meningococcal Vaccine Completed 03/27/2006 HPV Vaccines Aged Out No longer eligi ble based on patient's age to complete this topic Hepatitis A Vaccines Aged Out No long er eligible based on patient's age to complete this topic Men B Vaccine Aged Out No longer elig ible based on patient's age to complete this topic Pneumococcal Vaccine Aged Out No long er eligible based on patient's age to complete this topic
--- OUTSIDE RECORDS SUMMARY | 2024-06-02 17:47 | XMS_ITS | Encounter Summary ---
Author Organization [facility] Address [address] [place] [address] Phone Care Team Providers Care Fruit Ii Farmworker Name Role Phone Abimbola Oates MD Primary Care Provider Encounter Details Date Type Department Care Team (Late st Contact Info) Description 11/02/2016 Conversion Encounter [facility] [place] [address] [place] [address] Social History Tobacco Use Types Packs/Day Years Used Date Smoking Tobacco: Never Assessed Comments Unknown Sex and Gender Information Value Date Recorded Sex Assigned at Not on file Legal Sex Female 4:16 PM EDT Gender Identity Not on file Sexual Orientation Not on file documented as of this encounter Plan of Treatment Not on file documented as of this encounter Visit Diagnoses Not on filedocumented in this encounter Care Teams Fruit Ii Farmworker Relationship Specialty Start Date End Date Abimbola Oates MD [address] [place] [address] PCP - General 10/27/16 09/17/22 documented as of this encounter
== END 2024-06-02 15:17 | disposition home or self-care (01) ==
LOC: HO.MAMMO 15:16
PROVIDERS: PCP Nurse Practitioner Family; Visit Provider Nurse Practitioner Family
DX: Z12.31 Encounter for screening mammogram for malignant neoplasm of breast (principal)
CPT/HCPCS: 77063; 77067

== ENCOUNTER → 2024-06-02 15:30 | Outpatient (BNV) | payer OTHER, SELFPAY | PROVIDERS: PCP Nurse Practitioner Family; Visit Provider Internal Medicine | DX: Z12.31 Encounter for screening mammogram for malignant neoplasm of breast (principal) | CPT/HCPCS: 77063; 77067 ==

== ENCOUNTER 2024-06-05 14:44 | Outpatient (AMB) | payer OTHER, SELFPAY ==
[2024-06-05 14:49] VITALS: BP 132/76; PULSE 82; O2SAT 97; BMI 36.5
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
--- OUTSIDE RECORDS SUMMARY | 2024-06-05 17:18 | XMS_ITS | Encounter Summary ---
Author Organization [facility] Address [address] [place] [address] Phone Care Team Providers Care Carding Supervisor Name Role Phone Abimbola Oates MD Primary Care Provider [phone] Encounter Details Date Type Department Care Team (Late st Contact Info) Description 11/02/2016 Conversion Encounter [facility] [place] [address] [place] [address] Social History Tobacco Use Types Packs/Day Years [...] on filedocumented in this encounter Care Teams Carding Supervisor Relationship Specialty Start Date End Date Abimbola Oates MD [address] [place] [address] PCP - General 10/27/16 09/17/22 documented as of this encounter
--- OUTSIDE RECORDS SUMMARY | 2024-06-05 17:18 | XMS_ITS | Clinical Summary ---
Author Organization [facility] Address [address] [place] [phone] Phone Care Team Providers Care Pan Greaser Name Role Phone Unavailable Primary Care Provider [...]
== END 2024-06-05 15:57 | disposition home or self-care (01) ==
LOC: HO.HMCC 14:45
PROVIDERS: PCP Nurse Practitioner Family; Visit Provider Nurse Practitioner Family
DX: Z00.00 Encounter for general adult medical examination without abnormal findings (principal)

== ENCOUNTER → 2024-06-05 14:44 | Outpatient (BNVA) | payer OTHER, SELFPAY | PROVIDERS: PCP Nurse Practitioner Family; Visit Provider Nurse Practitioner Family | DX: Z00.00 Encounter for general adult medical examination without abnormal findings (principal); E28.2 Polycystic ovarian syndrome; Z80.3 Family history of malignant neoplasm of breast | CPT/HCPCS: 96127; 99395 ==

== ENCOUNTER 2024-06-19 16:00 | Outpatient (RCR) | payer OTHER, SELFPAY ==
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
== END 2024-06-24 09:57 | disposition home or self-care (01) ==
LOC: HO.SH 16:00
PROVIDERS: PCP Nurse Practitioner Family; Visit Provider Nurse Practitioner Family
DX: R68.89 Other general symptoms and signs (principal); F07.81 Postconcussional syndrome; F09 Unspecified mental disorder due to known physiological condition
CPT/HCPCS: 92507

== ENCOUNTER 2024-07-24 15:34 | Outpatient (AMB) | payer OTHER, SELFPAY ==
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
[2024-07-24 15:44] VITALS: BP 138/88; PULSE 88; O2SAT 97; BMI 36.2
--- OUTSIDE RECORDS SUMMARY | 2024-07-24 16:04 | XMS_ITS | Encounter Summary ---
Author Organization [facility] Address [address] [place] [address] Phone Care Team Providers Care Machine Joiner Cementer Name Role Phone Abimbola Oates MD Primary Care Provider Encounter Details Date Type Department Care Team (Late st Contact Info) Description 11/02/2016 Conversion Encounter [facility] [place] [address] [place] [address] Social History Tobacco Use Types Packs/Day Years [...] on filedocumented in this encounter Care Teams Machine Joiner Cementer Relationship Specialty Start Date End Date Abimbola Oates MD [address] [place] [address] PCP - General 10/27/16 09/17/22 documented as of this encounter
--- OUTSIDE RECORDS SUMMARY | 2024-07-24 16:04 | XMS_ITS | Clinical Summary ---
Author Organization [facility] Address [address] [place] [id number] Phone Care Team Providers Care Bed Setter Name Role Phone Unavailable Primary Care Provider [...] of 2 - 13+ 2-dose series) 2001 Influenza Vaccines (#1) 2023 COVID-19 Vaccine ( season) 2023 HIB Vaccines Completed 10/04/1989 IPV [...]
== END 2024-07-24 16:30 | disposition home or self-care (01) ==
LOC: HO.HGI 15:35
PROVIDERS: PCP Nurse Practitioner Family; Visit Provider Nurse Practitioner
DX: K21.9 Gastro-esophageal reflux disease without esophagitis (principal); K59.04 Chronic idiopathic constipation
CPT/HCPCS: 99213

== ENCOUNTER 2024-10-10 10:46 | Outpatient (AMB) | payer OTHER, SELFPAY ==
--- OUTSIDE RECORDS SUMMARY | 2024-10-10 10:54 | XMS_ITS | Encounter Summary ---
Author Organization [facility] Address [address] [place] [phone] Phone Care Team Providers Care Outsole Splicer Name Role Phone Americo Faria NP Primary Care Provider + Encounter Details Date Type Department Care Team (Late st Contact Info) Description 09/25/2023 Procedure Pass [facility] [address] [place] [phone] Social History Tobacco Use Types Packs/Day Years Used Date Smoking Tobacco: Former Cigarettes Q uit: 08/10/2010 Smokeless Tobacco: Never Alcohol Use Standard Drinks/Week Comments Yes 9 (1 standard drink = 0.6 oz pur e alcohol) more in the summer time Education Answer Date Recorded Are you interested in more education? Not on ji e 07/14/2022 Are you concerned about learning? Not on file 07/14/2022 No 07/14/2022 No 07/14/2022 Food Answer Date Recorded Within the past 6 months we worried whether our food would run out before we got money to buy more. Never True 09/28/2023 Within the past 6 months the food we bought just didn't last and we didn't have enough money to get more. Never True Residential Stability Answer Date Recor ded What is your housing situation today? I have amy sing 09/28/2023 How many times have you move d in the past 12 months? Zero (I did not move) 09/28/2023 Paying for Meds Answer Date Recorded Do you have trouble paying for medicines? No 09/28/2023 Paying Utility Bills Answer Date Record ed Do you have trouble paying y our heating or electricity bill? I choose not to answer 09/28/2023 Transportation Answer Date Recorded Has the lack of transportati on kept you from medical appointments or from getting medications? No 09/28/2023 Digital Access Answer Date Recorded No 09/28/2023 Yes 09/28/2023 Do you have reliable internet access at home? Ye s 09/28/2023 Do you have a device (e.g., phone, tablet, computer) with a working camera? Yes 09/28/2023 Intimate Partner Violence Answer Date R ecorded Are you denied basic needs s uch as food, clothing, or medical care? No 09/26/2023 In the past 12 months have y ou been in a relationship with a person who hurts, threatens, or tries to control you? No 09/26/2023 Are you denied basic needs s uch as food, clothing, or medical care? No 09/26/2023 In the past 12 months have y ou been in a relationship with a person who hurts, threatens, or tries to control you? No 09/26/2023 Comments No Sex and Gender Information Value Date Recorded Sex Assigned at Female 07/05/2021 2:12 PM EDT Legal Sex Female 1:33 PM EST Gender Identity Female 07/05/2021 2:12 PM EDT Sexual Orientation Straight 07/05/2021 2: 12 PM EDT documented as of this encounter Functional Status * Calculated C-SSRS Risk Score (Lifetime/Recent) Answer Date of Assessment Author No Risk Indicated 09/26/2023 1:00 AM EDT Selin Marcelino RN * [place] Suicide Severity Rating Scale (Screener/Recent Self-Report) Question Answer Date of Assessment Author 1. Wish to be (Past 1 Month) No 09/26/2023 1:00 AM EDT Selin Marcelino RN 2. Non-Specific Active Suicidal Thoughts (Past 1 Month) No 09/26/2023 1:00 AM EDT Selin Marcelino, NATASHA 6. Suicidal Behavior (Lifetime) No 09/26/2023 1:00 AM EDT Selin Marcelino RN documented as of this encounter Plan of Treatment Upcoming Encounters Date Type Department Care Team (Late st Contact Info) Description 11/06/2024 1:00 PM EDT Telemedicine [facility]ly [facility] [address] [facility], [address] [place] [address] Roddy Torres MD, PhD [address] [place] [address] [email or web address] Wells [address] [place] [address] [email or web address] 03/25/2025 3:00 PM EST Office Visit [facility] [address] [place] [id number] Marge Novak MD [address] [place] [address] [address] [place] [address] [email or web address] documented as of this encounter Visit Diagnoses Not on filedocumented in this encounter Care Teams Outsole Splicer Relationship Specialty Start Date End Date Americo Faria NP [address] [place] [address] [email or web address] PCP - General Family Medicine 07/05/21 documented as of this encounter Additional Source Comments The information contained in this document represents components of the legal health record. It is not the complete legal health record.[email or web address]
--- OUTSIDE RECORDS SUMMARY | 2024-10-10 10:54 | XMS_ITS | Encounter Summary ---
Author Organization [facility] Address [address] [place] [address] Phone Care Team Providers Care Sweeper Operator Highways Name Role Phone Abimbola Oates MD Primary Care Provider [phone] Encounter Details Date Type Department Care Team (Late st Contact Info) Description 11/02/2016 Conversion Encounter [facility] [place] [address] [place] [address] Social History Tobacco Use Types Packs/Day Years [...] on filedocumented in this encounter Care Teams Sweeper Operator Highways Relationship Specialty Start Date End Date Abimbola Oates MD [address] [place] [address] PCP - General 10/27/16 09/17/22 documented as of this encounter
[2024-10-10 11:01] VITALS: BP 110/90; PULSE 78; O2SAT 99
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
== END 2024-10-10 12:22 | disposition home or self-care (01) ==
LOC: HO.HSMS 10:46
PROVIDERS: PCP Nurse Practitioner Family; Visit Provider Nurse Practitioner Family
DX: F07.81 Postconcussional syndrome (principal); F09 Unspecified mental disorder due to known physiological condition; G44.329 Chronic post-traumatic headache, not intractable; G51.32 Clonic hemifacial spasm, left; R25.2 Cramp and spasm; G47.19 Other hypersomnia; R06.83 Snoring; G47.9 Sleep disorder, unspecified; G25.81 Restless legs syndrome
CPT/HCPCS: 99214

== ENCOUNTER 2024-10-12 16:31 | Emergency (ER) | payer OTHER, SELFPAY ==
[2024-10-12 16:40] VITALS: BP 148/94; PULSE 85; RESP 16; TEMP 36.1; O2SAT 100; BMI 35.8
--- NOTE | 2024-10-12 16:47 | ECG_ITS ---
Test Reason : allergic reaction Blood Pressure : */* mmHG Vent. Rate : 62 BPM Atrial Rate : 62 BPM P-R Int : 150 ms QRS Dur : 68 ms QT Int : 410 ms P-R-T Axes : 28 21 9 degrees QTcB Int : 416 ms Normal sinus rhythm Low voltage QRS Cannot rule out Anterior infarct , age undetermined Abnormal ECG When compared with ECG of 02-Feb-2017 10:39, Inverted T waves have replaced nonspecific T wave abnormality in Inferior leads Referred By: Alfonso Noriega Electronically Signed By: JOHNATHON MORIN MD
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
--- OUTSIDE RECORDS SUMMARY | 2024-10-12 17:14 | XMS_ITS | Encounter Summary ---
Author Organization [facility] Address [address] [place] [address] Phone Care Team Providers Care Customer Service Administrator Name Role Phone Abimbola Oates MD Primary Care Provider [phone] Encounter Details Date Type Department Care Team (Late st Contact Info) Description 11/02/2016 Conversion Encounter [facility] [address] [place] [address] Social History Tobacco Use Types Packs/Day Years [...] on filedocumented in this encounter Care Teams Customer Service Administrator Relationship Specialty Start Date End Date Abimbola Oates MD [address] [place] [address] PCP - General 10/27/16 09/17/22 documented as of this encounter
[2024-10-12 17:19] LABS: MANUAL DIFF FLAG NO
[2024-10-12 17:20] LABS: Hematocrit 40.5 % (37.0-47.0); Hemoglobin 13.4 g/dl (12.0-16.0); Imm Gran Abs Auto 0.02 X10*3/uL (0.00-0.03); Imm Gran Pct Auto 0.2 % (0.0-0.4); Lymphocytes Absolute Auto 1.7 X10*3/uL (1.2-4.9); Mean Corpuscular HGB Conc 33.1 g/dl (31.0-35.0); Mean Corpuscular Hemoglobin 28.5 pg (27.0-33.0); Mean Corpuscular Volume 86.0 fL (80.0-98.0); NRBC Abs Auto 0.000 X10*3/uL (0.0-0.012); NRBC Pct Auto 0.0 /100WBC (0.0-0.2); Platelet Count 340 X10*3/uL (160-400); Red Blood Count 4.71 X10*6/uL (4.20-5.50); White Blood Count 8.1 X10*3/uL (4.8-10.8)
[2024-10-12 17:28] LABS: INTERNATIONAL NORM RATIO 1.0 (0.9-1.1); Prothrombin Time 11.6 SEC (10.9-12.4)
[2024-10-12 17:31] LABS: Partial Thromboplastin Time 28.5 SEC (26.0-36.8)
[2024-10-12 17:35] LABS: Alanine Aminotransferase 23 U/L (0-31); Albumin Level 4.4 g/dL (3.5-5.0); Alkaline Phosphatase 81 U/L (39-117); Anion Gap 13 (12-20); Aspartate Amino Transferase 18 U/L (5-31); Blood Urea Nitrogen 13 mg/dL (9-16); Calcium 8.8 mg/dL (8.4-10.2); Carbon Dioxide 23 mmol/L (22-29); Chloride 106 mmol/L (96-108); Creatinine Clr Calc Pharmacy 107.5; Estimated Glomerular Filt Rate > 60; Potassium 3.9 mmol/L (3.3-5.1); Sodium 138 mmol/L (135-145); Total Protein 8.0 g/dL (6.5-8.0)
[2024-10-12 17:52] LABS: Troponin-I High Sensitivity < 2.7 ng/L (<3.5-17.0)
[2024-10-12 18:44] VITALS: BP 124/79; PULSE 60; RESP 14; TEMP 36.8; O2SAT 97
== END 2024-10-12 18:47 | disposition home or self-care (01) ==
PROVIDERS: Physician Assistant; Emergency Provider Emergency Medicine Emergency Medical Services; PCP Nurse Practitioner Family
DX: T78.1XXA Other adverse food reactions, not elsewhere classified, initial encounter (principal); T78.49XA Other allergy, initial encounter; R07.89 Other chest pain; R94.31 Abnormal electrocardiogram [ECG] [EKG]; X58.XXXA Exposure to other specified factors, initial encounter; Z79.899 Other long term (current) drug therapy; Z87.891 Personal history of nicotine dependence
CPT/HCPCS: 36415; 80053; 84484; 85025; 85610; 85730; 93005; 96374; 96375; 99284; J1200; J1308; J2919

== ENCOUNTER → 2024-10-12 16:47 | Outpatient (BNV) | payer OTHER, SELFPAY | PROVIDERS: Emergency Provider Emergency Medicine Emergency Medical Services; PCP Nurse Practitioner Family; Visit Provider Internal Medicine Cardiovascular Disease | DX: R94.31 Abnormal electrocardiogram [ECG] [EKG] (principal); T78.40XA Allergy, unspecified, initial encounter | CPT/HCPCS: 93010 ==

== ENCOUNTER 2024-10-15 07:14 | Emergency (ER) | payer OTHER, SELFPAY ==
--- NOTE | 2024-10-15 | ECG_ITS ---
Test Reason : chest pain Blood Pressure : */* mmHG Vent. Rate : 85 BPM Atrial Rate : 85 BPM P-R Int : 134 ms QRS Dur : 68 ms QT Int : 376 ms P-R-T Axes : 42 16 21 degrees QTcB Int : 447 ms Normal sinus rhythm Normal ECG When compared with ECG of 12-Oct-2024 17:30, No significant change was found Referred By: Generic ED Physician Electronically Signed By: JOHNATHON MORIN MD
--- NOTE | ~2024-10-15 | XR_ITS ---
EXAMINATION: XR CHEST 2 VIEWS HISTORY: chest pain COMPARISON: There are no prior studies available for comparison. FINDINGS: PA and lateral views of the chest are submitted. The lungs are expanded and clear. There is no pleural effusion, pneumothorax, or pulmonary vascular congestion. The heart is normal in size. The bones are intact. XR/XR chest 2V IMPRESSION: Normal examination of the chest. Electronically signed by: Marco Antonio Christopher MD 10/15/2024 08:56 AM EDT
[2024-10-15 07:33] VITALS: BP 125/80; PULSE 80; RESP 16; TEMP 36.3; O2SAT 99; BMI 35.7
[2024-10-15 07:56] LABS: MANUAL DIFF FLAG NO
[2024-10-15 08:07] LABS: Hematocrit 37.6 % (37.0-47.0); Hemoglobin 12.6 g/dl (12.0-16.0); Imm Gran Abs Auto 0.01 X10*3/uL (0.00-0.03); Imm Gran Pct Auto 0.2 % (0.0-0.4); Lymphocytes Absolute Auto 2.2 X10*3/uL (1.2-4.9); Mean Corpuscular HGB Conc 33.5 g/dl (31.0-35.0); Mean Corpuscular Hemoglobin 28.7 pg (27.0-33.0); Mean Corpuscular Volume 85.6 fL (80.0-98.0); NRBC Abs Auto 0.000 X10*3/uL (0.0-0.012); NRBC Pct Auto 0.0 /100WBC (0.0-0.2); Platelet Count 309 X10*3/uL (160-400); Red Blood Count 4.39 X10*6/uL (4.20-5.50); White Blood Count 5.9 X10*3/uL (4.8-10.8)
[2024-10-15 08:13] LABS: Alanine Aminotransferase 14 U/L (0-31); Albumin Level 4.1 g/dL (3.5-5.0); Alkaline Phosphatase 69 U/L (39-117); Anion Gap 12 (12-20); Aspartate Amino Transferase 16 U/L (5-31); Blood Urea Nitrogen 12 mg/dL (9-16); Calcium 8.6 mg/dL (8.4-10.2); Carbon Dioxide 25 mmol/L (22-29); Chloride 108 mmol/L (96-108); Creatinine Clr Calc Pharmacy 104.4; Estimated Glomerular Filt Rate > 60; Potassium 3.7 mmol/L (3.3-5.1); Sodium 141 mmol/L (135-145); Total Protein 7.1 g/dL (6.5-8.0)
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
[2024-10-15 08:21] LABS: Troponin-I High Sensitivity < 2.7 ng/L (<3.5-17.0)
[2024-10-15 09:30] LABS: D Dimer High Sensitivity 177 NG/ML
[2024-10-15 09:39] VITALS: BP 125/80; PULSE 80; RESP 16; TEMP 36.3; O2SAT 99
--- OUTSIDE RECORDS SUMMARY | 2024-10-15 10:13 | XMS_ITS | Encounter Summary ---
Author Organization [facility] Address [address] [place] [address] Phone Care Team Providers Care Engineering Group Leader Name Role Phone Americo Faria NP Primary Care Provider + Encounter Details Date Type Department Care Team (Late st Contact Info) Description 09/25/2023 Procedure Pass [facility] PERIOPER[facility]IVE DEPT [address] [place] [id number] Social History Tobacco Use Types Packs/Day Years [...] 1:00 AM EDT Selin Marcelino RN * [place] Suicide Severity Rating Scale (Screener/Recent Self-Report) Question [...] Info) Description 11/06/2024 1:00 PM EDT Telemedicine [facility] [address] [facility], 10th Floor, [address] [place] [address] Roddy Torres MD, PhD [address] [place] [address] [email or web address] Teresa Wells [address] [place] [address] [email or web address] 03/25/2025 3:00 PM EST Office Visit [facility] [address] [place] [address] Marge Novak MD [address] [place] [address] [address] [place] [address] [email or web address] documented as of this encounter Visit Diagnoses Not on filedocumented in this encounter Care Teams Engineering Group Leader Relationship Specialty Start Date End Date Americo Faria NP [address] [place] [address] [email or web address] PCP - General Family Medicine 07/05/21 documented as of this encounter Additional Source Comments The information contained in this document represents components of the legal health record. It is not the complete legal health record.[facility]
--- OUTSIDE RECORDS SUMMARY | 2024-10-15 10:13 | XMS_ITS | Encounter Summary ---
Author Organization [facility] Address [address] [place] [address] Phone Care Team Providers Care Elementary Assistant Principal Name Role Phone Abimbola Oates MD Primary Care Provider [phone] Encounter Details Date Type Department Care Team (Late st Contact Info) Description 11/02/2016 Conversion Encounter [facility] [address] [place] [address] Social History Tobacco Use Types Packs/Day Years [...] on filedocumented in this encounter Care Teams Elementary Assistant Principal Relationship Specialty Start Date End Date Abimbola Oates MD [address] [place] [address] PCP - General 10/27/16 09/17/22 documented as of this encounter
== END 2024-10-15 09:44 | disposition home or self-care (01) ==
LOC: HO.ED 09:39
PROVIDERS: Emergency Provider Emergency Medicine; PCP Nurse Practitioner Family
DX: M94.0 Chondrocostal junction syndrome [Tietze] (principal)
CPT/HCPCS: 36415; 71046; 80053; 84484; 85025; 85379; 93005; 99283

== ENCOUNTER → 2024-10-15 07:23 | Outpatient (BNV) | payer OTHER, SELFPAY | PROVIDERS: Emergency Provider Emergency Medicine; PCP Nurse Practitioner Family; Visit Provider Internal Medicine Cardiovascular Disease | DX: R07.89 Other chest pain (principal) | CPT/HCPCS: 93010 ==

== ENCOUNTER → 2024-10-15 08:21 | Outpatient (BNV) | payer OTHER, SELFPAY | PROVIDERS: Emergency Provider Emergency Medicine; PCP Nurse Practitioner Family; Visit Provider Radiology Diagnostic Radiology | DX: R07.9 Chest pain, unspecified (principal) | CPT/HCPCS: 71046 ==

== ENCOUNTER 2024-10-30 06:59 | Outpatient (AMB) | payer OTHER, SELFPAY ==
--- OUTSIDE RECORDS SUMMARY | 2024-10-30 07:02 | XMS_ITS | Encounter Summary ---
Author Organization [facility] Address [address] [place] [address] Phone Care Team Providers Care Computer Specialist Name Role Phone Americo Faria NP Primary Care Provider + Encounter Details Date Type Department Care Team (Late st Contact Info) Description 09/25/2023 Procedure Pass [facility] [place] [address] [place] [address] Social History Tobacco Use Types Packs/Day Years [...] 1:00 AM EDT Selin Marcelino RN * [place] Suicide Severity Rating Scale (Screener/Recent Self-Report) Question Answer Date of Assessment Author 1. Wish to be (Past 1 Month) No 09/26/2023 1:00 AM EDT Selin Marcelino RN 2. Non-Specific Active Suicidal Thoughts (Past 1 Month) No 09/26/2023 1:00 AM EDT Selin Marcelino, NATASHA 6. Suicidal Behavior (Lifetime) No 09/26/2023 1:00 AM EDT Selin Marcelino, NATASHA documented as of this encounter Plan of Treatment Upcoming Encounters Date Type Department Care Team (Late st Contact Info) Description 11/06/2024 1:00 PM EDT Telemedicine [facility] [address] [facility], 10th Floor, [address] [place] [address] Roddy Torres MD, PhD 55 [place] [address] [email or web address] Teresa Wells [address] [place] [address] [email or web address] 03/25/2025 3:00 PM EST Office Visit [facility] [address] [place] [address] [place] [address] Marge Novak MD [address] [place] [address] [address] [place] [address] [email or web address] documented as of this encounter Visit Diagnoses Not on filedocumented in this encounter Care Teams Computer Specialist Relationship Specialty Start Date End Date Americo Faria NP [address] [facility] [place] [address] PCP - General Family Medicine 07/05/21 documented as of this encounter Additional Source Comments The information contained in this document represents components of the legal health record. It is not the complete legal health record.[facility]
--- OUTSIDE RECORDS SUMMARY | 2024-10-30 07:02 | XMS_ITS | Encounter Summary ---
Author Organization [facility] Address [address] [place] [address] Phone Care Team Providers Care Lpc Name Role Phone Abimbola Oates MD Primary Care Provider [phone] Encounter Details Date Type Department Care Team (Late st Contact Info) Description 11/02/2016 Conversion Encounter [facility] [place] [address] [place] [address] Social History Tobacco Use Types Packs/Day Years [...] on filedocumented in this encounter Care Teams Lpc Relationship Specialty Start Date End Date Abimbola Oates MD [address] [place] [address] PCP - General 10/27/16 09/17/22 documented as of this encounter
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
== END 2024-10-30 08:13 | disposition home or self-care (01) ==
LOC: HO.HMCC 07:00
PROVIDERS: PCP Nurse Practitioner Family; Visit Provider Nurse Practitioner Family
DX: R00.2 Palpitations (principal); T78.40XA Allergy, unspecified, initial encounter

== ENCOUNTER → 2024-11-20 07:38 | Outpatient (REF) | payer OTHER, SELFPAY ==
--- NOTE | 2024-11-20 07:40 | HM_ITS ---
* Total monitoring time 3 days. * Underlying rhythm is sinus with an average rate of 74/Min. * Rare supraventricular ectopy. * Narrow complex tachycardia which is most likely sinus tachycardia; cannot exclude SVT in some strips but there is also a lot of artifact. * Rare ventricular ectopy. * No significant pauses or high-grade AV blocks. * No patient markers or diary events. MTDD
--- OUTSIDE RECORDS SUMMARY | 2024-11-20 07:40 | XMS_ITS | Encounter Summary ---
Author Organization [facility] Address [address] [place] [address] Phone Care Team Providers Care Community Health Nursing Director Name Role Phone Abimbola Oates MD Primary Care Provider [phone] Encounter Details Date Type Department Care Team (Late st Contact Info) Description 11/02/2016 Conversion Encounter [facility] [place] [address] [place] [address] Social History Tobacco Use Types Packs/Day Years [...] on filedocumented in this encounter Care Teams Community Health Nursing Director Relationship Specialty Start Date End Date Abimbola Oates MD [address] [place] [address] PCP - General 10/27/16 09/17/22 documented as of this encounter
--- OUTSIDE RECORDS SUMMARY | 2024-11-20 07:40 | XMS_ITS | Encounter Summary ---
Author Organization [facility] Address [address] [place] [address] Phone Care Team Providers Care Offshore Wind Operations Manager Name Role Phone Americo Faria NP Primary Care Provider + Encounter Details Date Type Department Care Team (Late st Contact Info) Description 08/12/2022 Procedure Pass [facility], Ct Scan - [facility] [address] [place] [address] Social History Tobacco Use Types Packs/Day Years Used Date Smoking Tobacco: Never Smokeless Tobacco: Never Alcohol Use Standard Drinks/Week Comments Not Currently 5 (1 standard drink = 0.6 oz pur e alcohol) Education Answer Date Recorded Are you interested in more education? Not on ji e 07/14/2022 Are you concerned about learning? Not on file 07/14/2022 No 07/14/2022 No 07/14/2022 Digital Access Answer Date Recorded No 08/12/2022 No 08/12/2022 Reliable internet access at home? Not on file 08/12/2022 Device with a working camera? Not on file Comments No Sex and Gender Information Value Date Recorded Sex Assigned at Female 07/05/2021 2:12 PM EDT Legal Sex Female 1:33 PM EST Gender Identity Female 07/05/2021 2:12 PM EDT Sexual Orientation Straight 07/05/2021 2: 12 PM EDT documented as of this encounter Functional Status * Calculated C-SSRS Risk Score (Lifetime/Recent) Answer Date of Assessment Author No Risk Indicated 08/12/2022 2:49 PM EDT Miriam Tobar, NATASHA * [place] Suicide Severity Rating Scale (Screener/Recent Self-Report) Question Answer Date of Assessment Author 1. Wish to be (Past 1 Month) No 08/12/2022 2:49 PM EDT Miriam Tobar, NATASHA 2. Non-Specific Active Suici neha Thoughts (Past 1 Month) No 08/12/2022 2:49 PM EDT Miriam Tobar, NATASHA 6. Suicidal Behavior (Lifetime) No 2:49 PM EDT Miriam Tobar, NATASHA documented as of this encounter Plan of Treatment Upcoming Encounters Date Type Department Care Team (Late st Contact Info) Description 12/10/2024 10:30 AM EDT [facility] [address] [place] [address], 10th Floor, [address] [place] [address] Roddy Torres MD, PhD [address] [place] [address] [email or web address] Teresa Wells [address] [place] [address] [email or web address] 03/25/2025 3:00 PM EST Office Visit [facility] [address] [place] [address] Marge Novak MD [address] [place] [address] [address] [place] [address] [email or web address] documented as of this encounter Visit Diagnoses Not on filedocumented in this encounter Care Teams Offshore Wind Operations Manager Relationship Specialty Start Date End Date Americo Faria NP [facility] [place] [address] PCP - General Family Medicine 07/05/21 documented as of this encounter Additional Source Comments The information contained in this document represents components of the legal health record. It is not the complete legal health record.[facility]
--- OUTSIDE RECORDS SUMMARY | 2024-11-20 07:40 | XMS_ITS | Encounter Summary ---
Author Organization [facility] Address [address] [place] [address] Phone Care Team Providers Care Pocket Operator Name Role Phone Americo Faria NP Primary Care Provider + Encounter Details Date Type Department Care Team (Late st Contact Info) Description 08/12/2022 Procedure Pass [facility], Ct Scan - [facility] [address] [place] [address] Social History Tobacco Use Types Packs/Day Years [...] 2:49 PM EDT Miriam Tobar, NATASHA * [place] Suicide Severity Rating Scale (Screener/Recent Self-Report) Question [...] Info) Description 12/10/2024 10:30 AM EDT Telemedicine [facility] [address] [place] [address], 10th Floor, [address] [place] [address] Roddy Torres MD, PhD [address] [place] [address] [email or web address] Teresa Wells [address] [place] [address] [email or web address] 03/25/2025 3:00 PM EST Office Visit [facility] [address] [place] [address] Mareg Novak MD [address] [place] [address] [address] [place] [address] [email or web address] documented as of this encounter Visit Diagnoses Not on filedocumented in this encounter Care Teams Pocket Operator Relationship Specialty Start Date End Date Americo Faria NP [facility] [place] [address] PCP - General Family Medicine 07/05/21 documented as of this encounter Additional Source Comments The information contained in this document represents components of the legal health record. It is not the complete legal health record.[facility]
--- OUTSIDE RECORDS SUMMARY | 2024-11-20 07:40 | XMS_ITS | Encounter Summary ---
Author Organization [facility] Address [address] [place] [address] Phone Care Team Providers Care Terra Cotta Roofer Helper Name Role Phone Americo Faria NP Primary Care Provider + Encounter Details Date Type Department Care Team (Late st Contact Info) Description 08/12/2022 Procedure Pass [facility], Ct Scan - [facility] [address] [place] [address] Social History Tobacco Use Types Packs/Day Years [...] 2:49 PM EDT Miriam Tobar, NATASHA * [place] Suicide Severity Rating Scale (Screener/Recent Self-Report) Question [...] Info) Description 12/10/2024 10:30 AM EDT Telemedicine [facility] [address] [place] [address], 10th Floor, [address] [place] [address] Roddy Torres MD, PhD [address] [place] [address] [email or web address] Teresa Wells [address] [place] [address] [email or web address] 03/25/2025 3:00 PM EST Office Visit [facility] [address] [place] [address] Marge Novak MD [address] [place] [address] [address] [place] [address] [email or web address] documented as of this encounter Visit Diagnoses Not on filedocumented in this encounter Care Teams Terra Cotta Roofer Helper Relationship Specialty Start Date End Date Americo Faria NP [facility] [place] [address] PCP - General Family Medicine 07/05/21 documented as of this encounter Additional Source Comments The information contained in this document represents components of the legal health record. It is not the complete legal health record.[facility]
--- OUTSIDE RECORDS SUMMARY | 2024-11-20 07:40 | XMS_ITS | Clinical Summary ---
Author Organization [facility] Address [address] [place] [address] Phone Care Team Providers Care Java Front End Web Developer Name Role Phone Unavailable Primary Care Provider [...] of 2 - 13+ 2-dose series) 2001 HPV Vaccines (1 - 3-dose SCDM series) 2015 Influenza Vaccines (#1) 2024 COVID-19 Vaccine ( - season) 2024 HIB Vaccines Completed 10/04/1989 IPV Vaccines Completed 02/02/1993, 09/16, 1988, Additional history exists MMR Vaccines Completed 08/08/2000, 07/05/1989 Hepatitis B Vaccines Completed 12/10/2000, 09/10/2000, 08/08/2000 Meningococcal Vaccine Completed 03/27/2006 Hepatitis A Vaccines Aged Out No long er eligible based on patient's age to complete this topic Men B Vaccine Aged Out No longer elig ible based on patient's age to complete this topic Pneumococcal Vaccine Aged Out No long er eligible based on patient's age to complete this topic
--- OUTSIDE RECORDS SUMMARY | 2024-11-20 07:40 | XMS_ITS | Encounter Summary ---
Author Organization [facility] Address [address] [place] [address] Phone Care Team Providers Care Back Gray Cloth Washer Name Role Phone Americo Faria NP Primary Care Provider + Encounter Details Date Type Department Care Team (Late st Contact Info) Description 09/25/2023 Procedure Pass [facility] DEPT [address] [place] [address] Social History Tobacco Use Types Packs/Day Years [...] 1:00 AM EDT Selin Marcelino RN * [place] Suicide Severity Rating Scale (Screener/Recent Self-Report) Question [...] Info) Description 12/10/2024 10:30 AM EDT Telemedicine [facility] [address] [facility], 10th Floor, [address] [place] [address] Roddy Torres MD, PhD [address] [place] [address] [email or web address] Teresa Wells [address] [place] [address] [email or web address] 03/25/2025 3:00 PM EST Office Visit [facility] [address] [place] [address] [place] [address] Marge Novak MD [address] [place] [address] [address] [place] [address] [email or web address] documented as of this encounter Visit Diagnoses Not on filedocumented in this encounter Care Teams Back Gray Cloth Washer Relationship Specialty Start Date End Date Americo Faria NP [address] [facility] [place] [address] PCP - General Family Medicine 07/05/21 documented as of this encounter Additional Source Comments The information contained in this document represents components of the legal health record. It is not the complete legal health record.[facility]
--- OUTSIDE RECORDS SUMMARY | 2024-11-20 07:40 | XMS_ITS | Encounter Summary ---
Author Organization [facility] Address [address] [place] [address] Phone Care Team Providers Care Bracer Name Role Phone Americo Faria NP Primary Care Provider + Encounter Details Date Type Department Care Team (Late st Contact Info) Description 10/31/2023 Transcribe Orders Virtual Department [address] [place] [address] Americo Faria, BRADEN [facility] [facility] [place] [address] Chromosomal abnormality (Primary Dx) Social History Tobacco Use Types Packs/Day Years [...] PM EDT documented as of this encounter Plan of Treatment Upcoming Encounters Date Type Department Care Team (Late st Contact Info) Description 12/10/2024 10:30 AM EDT Telemedicine [facility] [address] [place] [address], 10th Floor, [address] [place] [address] Roddy Torres MD, PhD [address] [place] [phone] [email or web address] Teresa Wells [address] [place] [address] [email or web address] 03/25/2025 3:00 PM EST Office Visit [facility] [address] [place] [address] [place] [address] Marge oNvak MD [address] [place] [address] documented as of this encounter Results * US Kidneys (11/01/2023 11:57 AM EDT) Anatomical Region Laterality Modality Abdomen, Kidney Ultrasound 11/01/2023 3:09 PM EDT Impressions 11/01/2023 3:17 PM EDT 1. No obvious sonographic abnormality of the kidneys. 2. Decompressed bladder. Narrative 11/01/2023 3:17 PM EDT US KIDNEYS Referring clinician's provided indication for this examination in [facility]: Outside Radiology Order; chromosomal abnormality, uspecified TECHNIQUE: Kidney Ultrasound. COMPARISON: CT ABDOMEN/PELVIS WITH CONTRAST FINDINGS: Right Kidney: Size: 9.7 cm cm No shadowing calcification or hydronephrosis. No solid/cystic mass or perinephric collection. Left Kidney: Size: 10.3 cm cm No shadowing calcification or hydronephrosis. No solid/cystic mass or perinephric collection. Bladder: Decompressed bladder, incomplete evaluation. Procedure Note Marianela Arango MD - 11/01/2023 US KIDNEYS Referring clinician's provided indication for this examination in [facility]:Outside Radiology Order; chromosomal abnormality, uspecified TECHNIQUE: Kidney Ultrasound. COMPARISON: CT ABDOMEN/PELVIS WITH CONTRAST FINDINGS: Right Kidney: Size: 9.7 cm cm No shadowing calcification or hydronephrosis. No solid/cystic mass orperinephric collection. Left Kidney: Size: 10.3 cm cm No shadowing calcification or hydronephrosis. No solid/cystic mass orperinephric collection. Bladder: Decompressed bladder, incomplete evaluation. IMPRESSION: 1. No obvious sonographic abnormality of the kidneys. 2. Decompressed bladder. 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 It is not the complete legal health record.[facility]
--- OUTSIDE RECORDS SUMMARY | 2024-11-20 07:41 | XMS_ITS | Encounter Summary ---
Author Organization [facility] Address [address] [place] [address] Phone Care Team Providers Care Front Desk Supervisor Name Role Phone Americo Faria NP Primary Care Provider + Encounter Details Date Type Department Care Team (Late st Contact Info) Description 07/06/2023 Procedure Pass [facility], [address] [place] [address] Social History Tobacco Use Types Packs/Day Years [...] Info) Description 12/10/2024 10:30 AM EDT Telemedicine [facility] [address] [facility], 10th Floor, [address] [place] [address] Roddy Torres MD, PhD [address] [place] [address] [email or web address] Teresa Wells [address] [place] [address] [email or web address] 03/25/2025 3:00 PM EST Office Visit [facility] [address] [place] [address] Marge Novak MD [address] [place] [address] [address] [place] [address] [email or web address] documented as of this encounter Visit Diagnoses Not on filedocumented in this encounter Care Teams Front Desk Supervisor Relationship Specialty Start Date End Date Americo Faria NP [facility] [place] [address] PCP - General Family Medicine 07/05/21 documented as of this encounter Additional Source Comments The information contained in this document represents components of the legal health record. It is not the complete legal health record.[facility]
--- OUTSIDE RECORDS SUMMARY | 2024-11-20 07:41 | XMS_ITS | Encounter Summary ---
Author Organization [facility] Address [address] [place] [address] Phone Care Team Providers Care Cistern Room Operator Name Role Phone Americo Faria NP Primary Care Provider + Encounter Details Date Type Department Care Team (Late st Contact Info) Description 08/12/2022 Procedure Pass [facility], Ct Scan - [facility] [address] [place] [address] Social History Tobacco Use Types Packs/Day Years [...] 2:49 PM EDT Miriam Tobar, NATASHA * [place] Suicide Severity Rating Scale (Screener/Recent Self-Report) Question [...] 12/10/2024 10:30 AM EDT Telemedicine [facility] [address] [place] [address], 10th Floor, [address] [place] [address] Roddy Torres MD, PhD [address] [place] [phone] [email or web address] Teresa Wells [address] [place] [address] [email or web address] 03/25/2025 3:00 PM EST Office Visit [facility] [address] [place] [address] Marge Novak MD [address] [place] [address] [address] [place] [address] [email or web address] documented as of this encounter Visit Diagnoses Not on filedocumented in this encounter Care Teams Cistern Room Operator Relationship Specialty Start Date End Date Americo Faria NP [facility] [place] [address] PCP - General Family Medicine 07/05/21 documented as of this encounter Additional Source Comments The information contained in this document represents components of the legal health record. It is not the complete legal health record.[facility]
--- OUTSIDE RECORDS SUMMARY | 2024-11-20 07:41 | XMS_ITS | Clinical Summary ---
Author Organization [facility] Address [address] [place] [address] Phone Care Team Providers Care Vocational Training Director Name Role Phone Americo Faria NP Primary Care Provider + Allergies Active Allergy Reactions Criticality Noted Date Comments Codeine 09/27/2021 Other reaction(s): HIVES ALL OVER SWELLING Metformin GI Upset High 01/04/2024 Pt stated not allergic Metoprolol-Dietary Supp. No.10 08/12/2022 Simethicone 09/27/2021 Tree Nuts Anaphylaxis High 09/04/2023 hazelnut Medications omeprazole (PRILOSEC) 40 MG capsule 2 Active LINZESS 290 mcg Cap capsule daily as needed. 2 Active EPINEPHrine (EPIPEN JR) 0.15 mg/0.3 mL auto-injector Inject 0.15 mg into the muscle as needed for anaphylaxis. Active melatonin 5 mg Tab 5 mg nightly at bedtime as needed. 4 Active acetaminophen (TYLENOL) 325 mg tablet Take 3 tablets (975 mg total) by mouth every 6 (six) hours as needed. 168 tablet 1 4 Active dulaglutide (TRULICITY) 0.75 mg/0.5 mL subcutaneous injectionIndicat ions:Polycystic ovarian syndrome,Gastroe sophageal reflux disease with esophagitis without hemorrhage,Class 2 severe obesity due to excess calories with serious comorbidity and body mass index (BMI) of 37.0 to 37.9 in adult,Metabolic dysfunction-asso ciated steatotic liver disease (MASLD),Pre-diab etes,Insulin resistance Inject 0.5 mL (0.75 mg total) under the skin every 7 days. 2 mL 1 4 Active Additional Information Patient not taking.Reported on 07/30/2024 RABEprazole (ACIPHEX) 20 mg tablet Take 1 tablet by mouth 2 (two) times a day. 5 Active metFORMIN (GLUCOPHAGE-XR) 500 MG 24 hr tablet Take 3 tablets (1,500 mg total) by mouth daily with dinner. 270 tablet 2 5 Active Active Problems Problem Noted Date Diagnosed Date Fatigue 08/02/2024 Assessment & Plan (08/02/2024 10:41 PM EDT): Feels tired all the time. Sleeps about 5 hours. Difficulty falling asleep. Was told that she snores. We discussed that PCOS increase the risk of sleep apnea. Will also check TSH with free T4 because of family history and her fatigue though clinically seems euthyroid. Family history of hypothyroidism 08/02/2024 Assessment & Plan (08/02/2024 10:32 PM EDT): 1 maternal aunt and her children have hypothyroidism. Patient had normal TSH levels, last tested in 11/2023. Free T4 was not reported. -Added TSH with free T4 to next labs Prediabetes 08/02/2024 Assessment & Plan (08/02/2024 10:44 PM EDT): Her A1c was in the prediabetes range at 5.8% in 11/2023. She intentionally lost 12 pounds since 11/2023. Last A1c normalized at 5.6% in 03/2024. Congratulated on her efforts and encouraged to continue positive lifestyle changes. 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 She would like to get help regulate her cycles, control her facial hair and decrease her facial skin symptoms of itching/burning which gets worse about 2 weeks before her cycle. She has a 15-year-old son and does not plan on further pregnancies at present. She is not sexually active. She is also worried about her A1c which was elevated at 5.8% in 11/2023 and was normal at 5.6 in 03/2024. She intentionally lost 12 pounds since 11/2023. She had intolerance to 1500 mg extended release metformin daily but when was rechallenged and dose was titrated up gradually from 500 mg daily to 1500 mg daily she is able to tolerate it without major side effects within the last 2 weeks. We discussed that metformin may help decrease insulin resistance and help regulate her cycles as well as improve her blood sugars. It may not help with facial hair and skin symptoms. She had normal DHEA-sulfate, normal total testosterone and normal prolactin level in 06/2022. -Will recheck androgens -Continue current metformin dose but may decrease to 1000 mg if GI issues return. -Continue to work on carbohydrate controlled/higher protein diet -Try to add another 1 to 2 days of higher intensity exercise per week -May retry spironolactone for hirsutism -Follow-up in 6 to 8 months S/P myomectomy 09/25/2023 Migraine with aura, with int ractable migraine, so stated, with status migrainosus 06/23/2022 Overview (06/23/2022): No estrogen containing management. Fibroids 09/27/2021 Gastroesophageal reflux dise ase with esophagitis without hemorrhage 09/27/2021 Resolved Problems Problem Noted Date Diagnosed Date Resolved Date Polycystic ovaries 09/27/2021 3 Assessment & Plan (09/27/2021 10:05 AM EDT): Alopecia -- may benefit from spironolactone Irregular menses -- IUD progestin, or monthly Provera --Norethindrone oral contraceptive only -- near continuous bleeding. -- do not think EE containing contraceptives are a good idea given hx migraine with aura -- complicating factor is that these may be premenstrual migraines. Encounters Date Type Department Care Team Description 11/06/2024 1:00 PM EDT Telemedicine [facility] [address] [place] [address], 10th Floor, [address] [place] [id number] Roddy Torres MD, PhD Teresa Wells Family history of breast cancer (Primary Dx); Family history of pancreatic cancer; Family history of prostate cancer; Encounter for nonprocreative genetic counseling from Last 3 Months Immunizations Immunization Administration Dates Next Due COVID-19 (Pre-01/08) Moderna Vaccine, mRNA, PF 06/05/2020 DTP 02/02/1993, 0,1988,08/30,1988 Hepatitis B 12/10/2000,09/10/2000,08/08/2000 Hib,PRP-T 10/04/1989 Influenza Quadrivalent w/ Pr eservative IM 03/07/2016 MMR 08/08/2000,07/05/1989 Meningococcal MCV4P 03/27/2006 Polio - OPV 02/02/1993, 0,1988,06/27 Td (adult),2 Lf Tetanus Toxo id, PF, Adsorbed 08/08/2000 Family History Medical History Relation Comments Diabetes Maternal Grandfather Fibroids Maternal Grandmother Heart disease Maternal Grandmother Breast cancer Mother Epilepsy Mother Fibroids Mother Syncope Mother Alopecia Paternal Aunt Dementia Paternal Grandmother Anemia Sister Irregular menses Sister Relation Status Comments Father Alive Half-Sister 1 Alive Half-Sister 2 Alive Maternal Grandfather Maternal Grandmother Mother Alive Paternal Aunt Alive Paternal Grandmother Sister Alive Social History Tobacco Use Types Packs/Day Years Used Date Smoking Tobacco: Former Cigarettes Q uit: 08/10/2010 Smokeless Tobacco: Never Tobacco Cessation:Counseling Given: Not Answered Alcohol Use Standard Drinks/Week Comments Yes 9 [...] Orientation Straight 07/05/2021 2: 12 PM EDT Last Filed Vital Signs Vital Sign Reading Time Taken Comments Blood Pressure 120/70 07/30/2024 2:01 PM EDT Pulse 87 07/30/2024 2:01 PM EDT Temperature 36.5 C (97.7 F) 09/29/2023 11:59 AM EDT Respiratory Rate 18 09/29/2023 11:59 AM EDT Oxygen Saturation 97% 07/30/2024 2:01 PM EDT Inhaled Oxygen Concentration - - Weight 86.7 kg (191 lb 3.2 oz) 07/30/2024 2:01 P M EDT Height 155.6 cm (5' 1.26 ) 07/30/2024 2:01 PM ED T Body Mass Index 35.82 07/30/2024 2:01 PM EDT Plan of Treatment Upcoming Encounters Date Type Department Care Team (Late st Contact Info) Description 12/10/2024 10:30 AM EDT Telemedicine [facility] [address] [place] [address], 10th Floor, [address] [place] [address] Roddy Torres MD, PhD [address] [place] [address] [email or web address] Teresa Wells [address] [place] [address] [email or web address] 03/25/2025 3:00 PM EST Office Visit [facility] [address] [place] [address] Marge Novak MD [address] [place] [address] [address] [place] [address] [email or web address] Health Maintenance Due Date Last Done Comments DEPRESSION SCREENING 2000 SMOKING Hx and SMOKELESS TOBACCO SCREENING 2001 HEPATITIS C SCREENING 2006 HIV ONE-TIME SCREENING (18-65 YEARS) 2006 PAP SMEAR 2009 INFLUENZA VACCINE (#1) 2024 03/07/2016 COVID-19 VACCINE ( season) 2024 07/03/2020, 06/05/2020 CREATININE LEVEL 04/14/2025 04/14/2024, , 09/28/2023, Additional history exists SCREENING FOR DIABETES 04/14/2027 04/14/2024, 2024 Adult Td,Tdap Booster 05/23/2027 05/22/2017, 001 HIB VACCINES Completed 10/04/1989 MENINGOCOCCAL VACCINES (ACWY) Completed 03/27/2006 HEPATITIS A VACCINES Aged Out No long er eligible based on patient's age to complete this topic MENINGOCOCCAL VACCINES (B) Aged Out N o longer eligible based on patient's age to complete this topic PNEUMOCOCCAL VACCINES (0-49 years) Aged Out No longer eligible based on patient's age to complete this topic Medical Devices Not on file Procedures Procedure Name Priority Date/Time Associated Diagnosis Comments COMPREHENSIVE METABOLIC PANEL Routine 04/14/2024 4:08 PM EST Polycystic ovarian syndrome from Last 3 Months or Most Recently Relevant to Health Maintenance Results * Comprehensive metabolic panel (04/14/2024 4:08 PM EST) SODIUM 138 133 - 146 mmol/L [facility] POTASSIUM 3.7 3.3 - 5.1 mmol/L [facility] CHLORIDE 101 96 - 108 mmol/L [facility] CO2 27 21 - 35 mmol/L [facility] BUN 11 6 - 19 mg/dL [facility] CREATININE 0.70 0.5 - 1.5 mg/dL [facility] GLUCOSE 84 70 - 99 mg/dL [facility] ALBUMIN 4.3 3.9 - 4.8 g/dL [facility] TOTAL PROTEIN 7.7 6.5 - 8.0 g/dL [facility] CALCIUM 9.3 8.4 - 10.3 mg/dL [facility] ALKALINE PHOSPHATASE 89 39 - 117 U/L [facility] TOTAL BILIRUBIN 0.4 0.0 - 1.2 mg/dL [facility] AST 17 0 - 37 U/L [facility] ALT 17 0 - 40 U/L [facility] GLOBULIN 3.4 1 - 4.8 g/dL [facility] EGFR 115 >59 mL/min/1.7 3m2 [facility] Comment:Estimated glomerular filtration rate calculated using the CKD-EPI refit equation. ANION GAP 14 10 - 20 mmol/L [facility] Blood 04/14/2024 4:08 PM EST 04/14/2024 4:10 PM EST us Jose Luis [facility] LAB BLOOD ORDERAB LES Final Result [address] [address] from Last 3 Months or Most Recently Relevant to Health Maintenance Insurance [facility]ANS [facility] DIRECT Advance Directives For more information, please contact: [phone] (9AM - 5PM [facility], Sunday-Sunday) Documents on File Type Date Recorded Patient Digital Coordinator Expl anation Healthcare Proxy 10/02/2023 3:35 PM Care Teams Vocational Training Director Relationship Specialty Start Date End Date Americo Faria NP [address] [facility] [place] [address] PCP - General Family Medicine 07/05/21 Additional Source Comments The information contained in this document represents components of the legal health record. It is not the complete legal health record.[facility]
== END ==
LOC: HO.CARD 07:38
PROVIDERS: PCP Nurse Practitioner Family; Visit Provider Nurse Practitioner Family
DX: R00.2 Palpitations (principal)
CPT/HCPCS: 93242

== ENCOUNTER → 2024-11-20 07:40 | Outpatient (BNV) | payer OTHER, SELFPAY | PROVIDERS: PCP Nurse Practitioner Family; Visit Provider Internal Medicine | DX: I49.3 Ventricular premature depolarization (principal); I49.49 Other premature depolarization; R00.0 Tachycardia, unspecified | CPT/HCPCS: 93244 ==

== ENCOUNTER → 2024-12-30 15:54 | Outpatient (REF) | payer OTHER, SELFPAY ==
--- OUTSIDE RECORDS SUMMARY | 2024-12-30 18:29 | XMS_ITS | Encounter Summary ---
Author Organization [facility] Address [address] [place] [address] Phone Care Team Providers Care Parking Station Attendant Name Role Phone Americo Faria NP Primary Care Provider + Encounter Details Date Type Department Care Team (Late st Contact Info) Description 08/12/2022 Procedure Pass [facility], Ct Scan - [facility] [address] [place] [address] Social History Tobacco Use Types Packs/Day Years Used Date Smoking Tobacco: Never Smokeless Tobacco: Never Alcohol Use Standard Drinks/Week Comments Not Currently 5 (1 standard drink = 0.6 oz pur e alcohol) Education Answer Date Recorded Are you interested in more education? Not on ij e 07/14/2022 Are you concerned about learning? [...] 2:49 PM EDT Miriam Tobar, NATASHA * [place] Suicide Severity Rating Scale (Screener/Recent Self-Report) Question [...] Care Team (Late st Contact Info) Description 03/25/2025 3:00 PM EST Office Visit [facility] [address] [place] [address] [place] [address] Marge Novak MD [address] [place] [address] [email or web address] documented as of this encounter Visit Diagnoses Not on filedocumented in this encounter Care Teams Parking Station Attendant Relationship Specialty Start Date End Date Americo Faria NP [address] [facility] [place] [address] PCP - General Family Medicine 07/05/21 documented as of this encounter Additional Source Comments The information contained in this document represents components of the legal health record. It is not the complete legal health record.[facility]
--- OUTSIDE RECORDS SUMMARY | 2024-12-30 18:29 | XMS_ITS | Encounter Summary ---
Author Organization [facility] Address [address] [place] [address] Phone Care Team Providers Care Claims Coordinator Name Role Phone Americo Faria NP Primary Care Provider + Encounter Details Date Type Department Care Team (Late st Contact Info) Description 09/25/2023 Procedure Pass [facility]IVE [facility]PT [address] [place] [address] Social History Tobacco Use Types Packs/Day Years [...] 1:00 AM EDT Selin Marcelino RN * [place] Suicide Severity Rating Scale (Screener/Recent Self-Report) Question [...] 3:00 PM EST Office Visit [facility] [address] [place] [address] [place] [address] Marge Novak MD [address] [address] [email or web address] documented as of this encounter Visit Diagnoses Not on filedocumented in this encounter Care Teams Claims Coordinator Relationship Specialty Start Date End Date Americo Faria NP [facility] [place] [address] PCP - General Family Medicine 07/05/21 documented as of this encounter Additional Source Comments The information contained in this document represents components of the legal health record. It is not the complete legal health record.[facility]
--- OUTSIDE RECORDS SUMMARY | 2024-12-30 18:29 | XMS_ITS | Encounter Summary ---
Author Organization [facility] Address [address] [place] [address] Phone Care Team Providers Care Campus Administrative Assistant Name Role Phone Americo Faria NP Primary Care Provider + Encounter Details Date Type Department Care Team (Late st Contact Info) Description 08/12/2022 Procedure Pass [facility], Ct Scan - [facility] [address] [place] [address] Social History Tobacco Use Types Packs/Day Years [...] 2:49 PM EDT Miriam Tobar, NATASHA * [place] Suicide Severity Rating Scale (Screener/Recent Self-Report) Question [...] 3:00 PM EST Office Visit [facility] [address] [place] [address] [place] [address] Marge Novak MD [address] [place] [address] [email or web address] documented as of this encounter Visit Diagnoses Not on filedocumented in this encounter Care Teams Campus Administrative Assistant Relationship Specialty Start Date End Date Americo Faria NP [address] [place] [address] PCP - General Family Medicine 07/05/21 documented as of this encounter Additional Source Comments The information contained in this document represents components of the legal health record. It is not the complete legal health record.[facility]
--- OUTSIDE RECORDS SUMMARY | 2024-12-30 18:29 | XMS_ITS | Encounter Summary ---
Author Organization [facility] Address [address] [place] [address] Phone Care Team Providers Care Freelance Photographer Name Role Phone Americo Faria NP Primary Care Provider + Encounter Details Date Type Department Care Team (Late st Contact Info) Description 08/12/2022 Procedure Pass [facility], Ct Scan - [facility] [address] [place] [address] Social History Tobacco Use Types Packs/Day Years [...] 2:49 PM EDT Miriam Tobar, NATASHA * [place] Suicide Severity Rating Scale (Screener/Recent Self-Report) Question [...] 3:00 PM EST Office Visit [facility] [address] [place] [address] [place] [address] Marge Novak MD [address] [place] [address] [email or web address] documented as of this encounter Visit Diagnoses Not on filedocumented in this encounter Care Teams Freelance Photographer Relationship Specialty Start Date End Date Americo Faria NP 1963 [facility] [place] [address] PCP - General Family Medicine 07/05/21 documented as of this encounter Additional Source Comments The information contained in this document represents components of the legal health record. It is not the complete legal health record.[facility]
--- OUTSIDE RECORDS SUMMARY | 2024-12-30 18:29 | XMS_ITS | Encounter Summary ---
Author Organization [facility] Address [address] [place] [address] Phone Care Team Providers Care Reading Coach Name Role Phone Abimbola Oates MD Primary Care Provider [phone] Encounter Details Date Type Department Care Team (Late st Contact Info) Description 11/02/2016 Conversion Encounter [facility] [place] [facility] [address] [place] [address] Social History Tobacco Use Types Packs/Day Years [...] on filedocumented in this encounter Care Teams Reading Coach Relationship Specialty Start Date End Date Abimbola Oates MD [address] [place] [address] PCP - General 10/27/16 09/17/22 documented as of this encounter
--- OUTSIDE RECORDS SUMMARY | 2024-12-30 18:29 | XMS_ITS | Clinical Summary ---
Author Organization [facility] Address [address] [place] [address] Phone Care Team Providers Care City Carrier Assistant Name Role Phone Unavailable Primary Care Provider [...] Vaccines (#1) 2024 COVID-19 Vaccine ( - 2024- season) 2024 HIB Vaccines Completed 10/04/1989 IPV [...]
--- OUTSIDE RECORDS SUMMARY | 2024-12-30 18:29 | XMS_ITS | Encounter Summary ---
Author Organization [facility] Address [address] [place] [address] Phone Care Team Providers Care Dietist Name Role Phone Americo Faria NP Primary Care Provider + Encounter Details Date Type Department Care Team (Late st Contact Info) Description 07/06/2023 Procedure Pass [facility], [address] [place] [address] Social History Tobacco Use Types Packs/Day Years [...] 3:00 PM EST Office Visit [facility] [address] Marge Novak MD [address] [address] [email or web address] documented as of this encounter Visit Diagnoses Not on filedocumented in this encounter Care Teams Dietist Relationship Specialty Start Date End Date Americo Faria NP [address] [place] [address] [place] [address] PCP - General Family Medicine 07/05/21 documented as of this encounter Additional Source Comments The information contained in this document represents components of the legal health record. It is not the complete legal health record.[facility]
--- OUTSIDE RECORDS SUMMARY | 2024-12-30 18:29 | XMS_ITS | Clinical Summary ---
Author Organization [facility] Address 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 She would like to get help regulate [...] Team Description 11/06/2024 1:00 PM EDT Telemedicine [facility] [address] [place] [address], 10th Floor, [address] [place] [id number] Roddy Torres MD, PhD Teresa Wells Family [...] 3:00 PM EST Office Visit [facility] [address] [place] [address] Marge Novak MD [address] [place] [address] [email or web address] Health Maintenance Due Date Last Done Comments [...] EST) SODIUM 138 133 - 146 mmol/L [facility] POTASSIUM 3.7 3.3 - 5.1 mmol/L [facility] CHLORIDE 101 96 - 108 mmol/L [facility] CO2 27 21 - 35 mmol/L [facility] BUN 11 6 - 19 mg/dL [facility] CREATININE 0.70 0.5 - 1.5 mg/dL [facility] GLUCOSE 84 70 - 99 mg/dL [facility] ALBUMIN 4.3 3.9 - 4.8 g/dL [facility] TOTAL PROTEIN 7.7 6.5 - 8.0 g/dL [facility] CALCIUM 9.3 8.4 - 10.3 mg/dL [facility] ALKALINE PHOSPHATASE 89 39 - 117 U/L [facility] TOTAL BILIRUBIN 0.4 0.0 - 1.2 mg/dL [facility] AST 17 0 - 37 U/L [facility] ALT 17 0 - 40 U/L [facility] GLOBULIN 3.4 1 - 4.8 g/dL [facility] EGFR 115 >59 mL/min/1.7 3m2 [facility] Comment:Estimated glomerular filtration rate calculated using the CKD-EPI refit equation. ANION GAP 14 10 - 20 mmol/L [facility] Blood 04/14/2024 4:08 PM EST 04/14/2024 4:10 PM EST Jose Luis VAIL LAB BLOOD ORDERAB LES Final Result [address] [address] from Last 3 Months or Most Recently Relevant to [place] [address] Advance Directives For more information, please contact: [phone] (9AM - 5PM [facility], Sunday-Sunday) Documents on File Type Date Recorded Patient Branch Account Executive Expl anation Healthcare Proxy 10/02/2023 3:35 PM Care Teams Savings Teller Relationship Specialty Start Date End Date Americo Faria NP [address] [facility] [place] [address] PCP - General Family Medicine 07/05/21 Additional Source Comments The information contained in this document represents components of the legal health record. It is not the complete legal health record.[facility]
--- OUTSIDE RECORDS SUMMARY | 2024-12-30 18:29 | XMS_ITS | Encounter Summary ---
Author Organization [facility] Address [address] [place] [address] Phone Care Team Providers Care Architecture Intern Name Role Phone Americo Faria NP Primary Care Provider + Encounter Details Date Type Department Care Team (Late st Contact Info) Description 08/12/2022 Procedure Pass [facility], Ct Scan - [facility] 30 [place] [address] Social History Tobacco Use Types Packs/Day Years [...] 2:49 PM EDT Miriam Tobar, NATASHA * [place] Suicide Severity Rating Scale (Screener/Recent Self-Report) Question [...] 3:00 PM EST Office Visit [facility] [address] [place] [address] [place] [address] Marge Novak MD [address] [place] [address] [email or web address] documented as of this encounter Visit Diagnoses Not on filedocumented in this encounter Care Teams Architecture Intern Relationship Specialty Start Date End Date Americo Faria NP [address] [place] [address] PCP - General Family Medicine 07/05/21 documented as of this encounter Additional Source Comments The information contained in this document represents components of the legal health record. It is not the complete legal health record.[facility]
--- OUTSIDE RECORDS SUMMARY | 2024-12-30 18:29 | XMS_ITS | Encounter Summary ---
Author Organization [facility] Address [address] [place] [address] Phone Care Team Providers Care Pen Tender Name Role Phone Americo Faria NP Primary Care Provider + Encounter Details Date Type Department Care Team (Late st Contact Info) Description 10/31/2023 Transcribe Orders Virtual Department 30 [place] [address] Americo Faria, BRADEN [facility] [place] [address] Chromosomal abnormality (Primary Dx) Social History Tobacco [...] 3:00 PM EST Office Visit [facility] [address] [place] [address] [place] [address] Marge Novak MD [address] [address] documented as of this encounter Results * US Kidneys (11/01/2023 11:57 AM EDT) Anatomical Region Laterality Modality Abdomen, Kidney Ultrasound 11/01/2023 3:09 PM EDT Impressions 11/01/2023 3:17 PM EDT 1. No obvious sonographic abnormality of the kidneys. 2. Decompressed bladder. Narrative 11/01/2023 3:17 PM EDT US KIDNEYS Referring clinician's provided indication for this examination in [facility]: Outside Radiology Order; chromosomal abnormality, uspecified TECHNIQUE: [...] clinician's provided indication for this examination in [facility]:Outside Radiology Order; chromosomal abnormality, uspecified TECHNIQUE: Kidney Ultrasound. COMPARISON: CT ABDOMEN/PELVIS WITH CONTRAST FINDINGS: Right Kidney: Size: 9.7 cm cm No shadowing calcification or hydronephrosis. No solid/cystic mass orperinephric collection. Left Kidney: Size: 10.3 cm cm No shadowing calcification or hydronephrosis. No solid/cystic mass orperinephric collection. Bladder: Decompressed bladder, incomplete evaluation. IMPRESSION: 1. No obvious sonographic abnormality of the kidneys. 2. Decompressed bladder. 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 It is not the complete legal health record.[facility]
== END ==
LOC: HO.SL 15:54
PROVIDERS: PCP Nurse Practitioner Family; Visit Provider Nurse Practitioner Family
DX: G47.19 Other hypersomnia (principal); R06.83 Snoring; G25.81 Restless legs syndrome
CPT/HCPCS: 95806

== ENCOUNTER → 2024-12-30 16:06 | Outpatient (BNV) | payer OTHER, SELFPAY | PROVIDERS: PCP Nurse Practitioner Family; Visit Provider Psychiatry & Neurology Neurology | DX: R06.83 Snoring (principal) | CPT/HCPCS: 95806 ==

== ENCOUNTER 2025-01-13 08:02 | Outpatient (REF) | payer OTHER, SELFPAY ==
--- OUTSIDE RECORDS SUMMARY | 2025-01-13 08:10 | XMS_ITS | Encounter Summary ---
Author Organization [facility] Address [address] [place] [address] Phone Care Team Providers Care Xm1 Tank Driver Name Role Phone Americo Faria NP Primary Care Provider + Encounter Details Date Type Department Care Team (Late st Contact Info) Description 09/25/2023 Procedure Pass [facility] [address] [place] [address] Social History Tobacco Use Types Packs/Day Years [...] 1:00 AM EDT Selin Marcelino RN * [place] Suicide Severity Rating Scale (Screener/Recent Self-Report) Question [...] 3:00 PM EST Office Visit [facility] [address] [place] [address] [place] [address] Marge Novak MD [address] [address] [email or web address] documented as of this encounter Visit Diagnoses Not on filedocumented in this encounter Care Teams Xm1 Tank Driver Relationship Specialty Start Date End Date Americo Faria NP [facility] [place] [address] PCP - General Family Medicine 07/05/21 documented as of this encounter Additional Source Comments The information contained in this document represents components of the legal health record. It is not the complete legal health record.[facility]
--- OUTSIDE RECORDS SUMMARY | 2025-01-13 08:10 | XMS_ITS | Encounter Summary ---
Author Organization [facility] Address [address] [place] [address] Phone Care Team Providers Care Track Grinder Operator Name Role Phone Americo Faria NP Primary Care Provider + Encounter Details Date Type Department Care Team (Late st Contact Info) Description 08/12/2022 Procedure Pass [facility], Ct Scan - [facility] 30 [place] [address] Social History Tobacco Use Types Packs/Day Years [...] 2:49 PM EDT Miriam Tobar, NATASHA * [place] Suicide Severity Rating Scale (Screener/Recent Self-Report) Question [...] 3:00 PM EST Office Visit [facility] [address] [place] [address] [place] [address] Marge Novak MD [address] [place] [address] [email or web address] documented as of this encounter Visit Diagnoses Not on filedocumented in this encounter Care Teams Track Grinder Operator Relationship Specialty Start Date End Date Americo Faria NP [address] [facility] [place] [address] PCP - General Family Medicine 07/05/21 documented as of this encounter Additional Source Comments The information contained in this document represents components of the legal health record. It is not the complete legal health record.[facility]
--- OUTSIDE RECORDS SUMMARY | 2025-01-13 08:10 | XMS_ITS | Encounter Summary ---
Author Organization [facility] Address [address] [place] [address] Phone Care Team Providers Care Medical Transcription Radiology Name Role Phone Americo Faria NP Primary Care Provider + Encounter Details Date Type Department Care Team (Late st Contact Info) Description 08/12/2022 Procedure Pass [facility], Ct Scan - [facility] [address] [place] [address] Social History Tobacco Use Types Packs/Day Years [...] 2:49 PM EDT Miriam Tobar, NATASHA * [place] Suicide Severity Rating Scale (Screener/Recent Self-Report) Question [...] PM EST Office Visit [facility] [address] [place] [address] [place] [address] Marge Novak MD [address] [place] [address] [email or web address] documented as of this encounter Visit Diagnoses Not on filedocumented in this encounter Care Teams Medical Transcription Radiology Relationship Specialty Start Date End Date Americo Faria NP [address] [facility] [place] [address] PCP - General Family Medicine 07/05/21 documented as of this encounter Additional Source Comments The information contained in this document represents components of the legal health record. It is not the complete legal health record.[facility]
--- OUTSIDE RECORDS SUMMARY | 2025-01-13 08:10 | XMS_ITS | Encounter Summary ---
Author Organization [facility] Address [address] [place] [address] Phone Care Team Providers Care Carton Stamper Name Role Phone Abimbola Oates MD Primary Care Provider [phone] Encounter Details Date Type Department Care Team (Late st Contact Info) Description 11/02/2016 Conversion Encounter [facility] [address] [place] [address] Social History Tobacco Use Types Packs/Day Years [...] on filedocumented in this encounter Care Teams Carton Stamper Relationship Specialty Start Date End Date Abimbola Oates MD [address] [place] [address] PCP - General 10/27/16 09/17/22 documented as of this encounter
--- OUTSIDE RECORDS SUMMARY | 2025-01-13 08:10 | XMS_ITS | Encounter Summary ---
Author Organization [facility] Address [address] [place] [address] Phone Care Team Providers Care Hunter Guide Name Role Phone Americo Faria NP Primary Care Provider + Encounter Details Date Type Department Care Team (Late st Contact Info) Description 10/31/2023 Transcribe Orders Virtual Department 30 [place] [address] Americo Faria, BRADEN [facility] [place] [address] Chromosomal abnormality (Primary Dx) Social History Tobacco [...] 3:00 PM EST Office Visit [facility] [address] [place] [address] [place] [address] Marge Novak MD [address] [address] documented as of this encounter Results * US Kidneys (11/01/2023 11:57 AM EDT) Anatomical Region Laterality Modality Abdomen, Kidney Ultrasound 11/01/2023 3:09 PM EDT Impressions 11/01/2023 3:17 PM EDT 1. No obvious sonographic abnormality of the kidneys. 2. Decompressed bladder. Narrative 11/01/2023 3:17 PM EDT US KIDNEYS Referring clinician's provided indication for this examination in [facility]: Outside Radiology Order; chromosomal abnormality, uspecified TECHNIQUE: [...] clinician's provided indication for this examination in [facility]:Outside Radiology Order; chromosomal abnormality, uspecified TECHNIQUE: Kidney [...] chromosome documented in this encounter Care Teams Hunter Guide Relationship Specialty Start Date End Date Americo Faria NP [facility] [place] [address] PCP - General Family Medicine 07/05/21 documented as of this encounter Additional Source Comments The information contained in this document represents components of the legal health record. It is not the complete legal health record.[facility]
--- OUTSIDE RECORDS SUMMARY | 2025-01-13 08:10 | XMS_ITS | Clinical Summary ---
Author Organization [facility] Address [address] [place] [address] Phone Care Team Providers Care Electric Razor Mechanic Name Role Phone Unavailable Primary Care Provider [...]
--- OUTSIDE RECORDS SUMMARY | 2025-01-13 08:11 | XMS_ITS | Clinical Summary ---
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 She would like to get help regulate [...] Team Description 11/06/2024 1:00 PM EDT Telemedicine [facility] [address] [place] [address], 10th Floor, [address] [place] [id number] Roddy Torres MD, PhD Teresa Wells Family [...] 3:00 PM EST Office Visit [facility] [address] [place] [address] Marge Novak MD [address] [place] [address] [email or web address] Health Maintenance Due Date Last Done Comments [...] EST) SODIUM 138 133 - 146 mmol/L [facility] POTASSIUM 3.7 3.3 - 5.1 mmol/L [facility] CHLORIDE 101 96 - 108 mmol/L [facility] CO2 27 21 - 35 mmol/L [facility] BUN 11 6 - 19 mg/dL [facility] CREATININE 0.70 0.5 - 1.5 mg/dL [facility] GLUCOSE 84 70 - 99 mg/dL [facility] ALBUMIN 4.3 3.9 - 4.8 g/dL [facility] TOTAL PROTEIN 7.7 6.5 - 8.0 g/dL [facility] CALCIUM 9.3 8.4 - 10.3 mg/dL [facility] ALKALINE PHOSPHATASE 89 39 - 117 U/L [facility] TOTAL BILIRUBIN 0.4 0.0 - 1.2 mg/dL [facility] AST 17 0 - 37 U/L [facility] ALT 17 0 - 40 U/L [facility] GLOBULIN 3.4 1 - 4.8 g/dL [facility] EGFR 115 >59 mL/min/1.7 3m2 [facility] Comment:Estimated glomerular filtration rate calculated using the CKD-EPI refit equation. ANION GAP 14 10 - 20 mmol/L [facility] Blood 04/14/2024 4:08 PM EST 04/14/2024 4:10 PM EST Jose Luis VAIL LAB BLOOD ORDERAB LES Final Result [address] [address] from Last 3 Months or Most Recently Relevant to [place] [address] Advance Directives For more information, please contact: [phone] (9AM - 5PM [facility], Sunday-Sunday) Documents on File Type Date Recorded Patient Vice President Payment Expl anation Healthcare Proxy 10/02/2023 3:35 PM Care Teams Hot Tamale Man Relationship Specialty Start Date End Date Americo Faria NP [address] [facility] [place] [address] PCP - General Family Medicine 07/05/21 Additional Source Comments The information contained in this document represents components of the legal health record. It is not the complete legal health record.[facility]
--- OUTSIDE RECORDS SUMMARY | 2025-01-13 08:11 | XMS_ITS | Encounter Summary ---
Author Organization [facility] Address [address] [place] [address] Phone Care Team Providers Care Optical Glass Silverer Name Role Phone Americo Faria NP Primary Care Provider + Encounter Details Date Type Department Care Team (Late st Contact Info) Description 07/06/2023 Procedure Pass [facility], [address] [place] [address] Social History Tobacco Use Types Packs/Day Years [...] 3:00 PM EST Office Visit [facility] [address] Marge Nvoak MD [address] [address] [email or web address] documented as of this encounter Visit Diagnoses Not on filedocumented in this encounter Care Teams Optical Glass Silverer Relationship Specialty Start Date End Date Americo Faria NP [address] [place] [address] [place] [address] PCP - General Family Medicine 07/05/21 documented as of this encounter Additional Source Comments The information contained in this document represents components of the legal health record. It is not the complete legal health record.[facility]
--- OUTSIDE RECORDS SUMMARY | 2025-01-13 08:11 | XMS_ITS | Encounter Summary ---
Author Organization [facility] Address [address] [place] [address] Phone Care Team Providers Care Dry Chain Worker Name Role Phone Americo Faria NP Primary Care Provider + Encounter Details Date Type Department Care Team (Late st Contact Info) Description 08/12/2022 Procedure Pass [facility], Ct Scan - [facility] [address] [place] [address] Social History Tobacco Use Types Packs/Day Years [...] 2:49 PM EDT Miriam Tobar, NATASHA * [place] Suicide Severity Rating Scale (Screener/Recent Self-Report) Question [...] 3:00 PM EST Office Visit [facility] [address] [place] [address] [place] [address] Marge Novak MD [address] [place] [address] [email or web address] documented as of this encounter Visit Diagnoses Not on filedocumented in this encounter Care Teams Dry Chain Worker Relationship Specialty Start Date End Date Americo Faria NP [address] [facility] [place] [address] PCP - General Family Medicine 07/05/21 documented as of this encounter Additional Source Comments The information contained in this document represents components of the legal health record. It is not the complete legal health record.[facility]
[2025-01-13 13:30] LABS: MANUAL DIFF FLAG NO
[2025-01-13 13:36] LABS: Hematocrit 42.2 % (37.0-47.0); Hemoglobin 13.4 g/dl (12.0-16.0); Imm Gran Abs Auto 0.01 X10*3/uL (0.00-0.03); Imm Gran Pct Auto 0.2 % (0.0-0.4); Lymphocytes Absolute Auto 1.6 X10*3/uL (1.2-4.9); Mean Corpuscular HGB Conc 31.8 g/dl (31.0-35.0); Mean Corpuscular Hemoglobin 28.0 pg (27.0-33.0); Mean Corpuscular Volume 88.1 fL (80.0-98.0); NRBC Abs Auto 0.000 X10*3/uL (0.0-0.012); NRBC Pct Auto 0.0 /100WBC (0.0-0.2); Platelet Count 351 X10*3/uL (160-400); Red Blood Count 4.79 X10*6/uL (4.20-5.50); White Blood Count 5.9 X10*3/uL (4.8-10.8)
[2025-01-13 14:18] LABS: Alanine Aminotransferase 14 U/L (0-31); Albumin Level 4.5 g/dL (3.5-5.0); Alkaline Phosphatase 70 U/L (39-117); Anion Gap 13 (12-20); Aspartate Amino Transferase 20 U/L (5-31); Blood Urea Nitrogen 9 mg/dL (9-16); Calcium 9.4 mg/dL (8.4-10.2); Carbon Dioxide 27 mmol/L (22-29); Chloride 106 mmol/L (96-108); Estimated Glomerular Filt Rate > 60; Iron 74 mcg/dL (30-160); Magnesium 2.0 mg/dL (1.6-2.6); Percent Iron Saturation 19 % (15-50); Potassium 4.8 mmol/L (3.3-5.1); Sodium 141 mmol/L (135-145); Total Iron Binding Capacity 383 mcg/dL (228-428); Total Protein 7.7 g/dL (6.5-8.0); Unsaturated Iron Binding 309 ug/dL
[2025-01-13 14:20] LABS: Ferritin 12 ng/mL (10-122)
[2025-01-13 14:22] LABS: Folate 4.8 ng/mL (> or = 4.0); Vitamin B12 431 pg/mL (200-900)
[2025-01-17 12:52] LABS: Vitamin D 25-OH, D2 <4 ng/mL; Vitamin D 25-OH, D3 17 ng/mL; Vitamin D 25-OH, Total 17 ng/mL (30-100)
== END 2025-01-13 08:03 | disposition home or self-care (01) ==
LOC: HO.HKASLDS 08:02
PROVIDERS: PCP Nurse Practitioner Family; Visit Provider Nurse Practitioner Family
DX: E28.2 Polycystic ovarian syndrome (principal); D64.9 Anemia, unspecified; E66.812 Obesity, class 2; R25.2 Cramp and spasm; R53.83 Other fatigue
CPT/HCPCS: 36415; 80053; 82306; 82607; 82728; 82746; 83090; 83540; 83735; 84443; 85025

== ENCOUNTER 2025-03-17 12:28 | Outpatient (REF) | payer OTHER, SELFPAY | END 2025-03-17 12:29 | disposition home or self-care (01) | LOC: HO.HKASLDS 12:28 | PROVIDERS: PCP Nurse Practitioner Family; Visit Provider Nurse Practitioner Family | DX: G51.32 Clonic hemifacial spasm, left (principal); F07.81 Postconcussional syndrome; F09 Unspecified mental disorder due to known physiological condition; G44.329 Chronic post-traumatic headache, not intractable; G47.19 Other hypersomnia; R06.83 Snoring; G25.81 Restless legs syndrome; G43.009 Migraine without aura, not intractable, without status migrainosus; Z79.899 Other long term (current) drug therapy | CPT/HCPCS: 99212 ==

== ENCOUNTER 2025-03-17 12:28 | Outpatient (AMB) | payer OTHER, SELFPAY ==
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
[2025-03-17 12:45] VITALS: BP 120/82; PULSE 76; O2SAT 98; BMI 32.0
--- OUTSIDE RECORDS SUMMARY | 2025-03-17 16:27 | XMS_ITS | Encounter Summary ---
Author Organization [facility] Address [address] [place] [address] Phone Care Team Providers Care Joiner Helper Name Role Phone Americo Faria NP Primary Care Provider + Encounter Details Date Type Department Care Team (Late st Contact Info) Description 08/12/2022 Procedure Pass [facility], Ct Scan - [address] [address] Social History Tobacco Use Types Packs/Day Years [...] Description 03/25/2025 3:00 PM EST Office Visit [facility] Endocrinology [facility] [address] [place] [address] Marge Novak MD [address] [facility] 3rd [place] [address] 04/13/2025 10:00 AM EST Office Visit [facility] Genitourinary Oncology Genetics [address] [place] [address], 7th Floor, [address] [place] [address] Claudio Franklin MD [address] [facility] [phone] [place] [address] [email or web address] documented as of this encounter Visit Diagnoses Not on filedocumented in this encounter Care Teams Joiner Helper Relationship Specialty Start Date End Date Americo Faria NP [facility] [place] [address] PCP - General Family Medicine 07/05/21 documented as of this encounter Additional Source Comments The information contained in this document represents components of the legal health record. It is not the complete legal health record.[facility]
--- OUTSIDE RECORDS SUMMARY | 2025-03-17 16:27 | XMS_ITS | Encounter Summary ---
Author Organization [facility] Address [address] [place] [phone] Phone Care Team Providers Care Digital Production Operator Name Role Phone Americo Faria NP Primary Care Provider + Encounter Details Date Type Department Care Team (Late st Contact Info) Description 09/25/2023 Procedure Pass [facility] [address] [place] [id number] Social History Tobacco Use Types Packs/Day Years [...] Description 03/25/2025 3:00 PM EST Office Visit [facility] Endocrinology Clinic [address] [place] [address] Marge Novak MD [address] [place] [address] 04/13/2025 10:00 AM EST Office Visit [facility] Genitourinary Oncology Genetics [address] [place] [address], 7th Floor, [address] [place] [address] Claudio Franklin MD [address] [place] [address] [phone] [place] [address] [email or web address] documented as of this encounter Visit Diagnoses Not on filedocumented in this encounter Care Teams Digital Production Operator Relationship Specialty Start Date End Date Americo Faria NP [address] [facility] [place] [address] PCP - General Family Medicine 07/05/21 documented as of this encounter Additional Source Comments The information contained in this document represents components of the legal health record. It is not the complete legal health record.[facility]
--- OUTSIDE RECORDS SUMMARY | 2025-03-17 16:27 | XMS_ITS | Encounter Summary ---
Author Organization [facility] Address [address] [place] [address] Phone Care Team Providers Care Water Engineer Name Role Phone Americo Faria NP Primary Care Provider + Encounter Details Date Type Department Care Team (Late st Contact Info) Description 10/31/2023 Transcribe Orders Virtual Department [address] [place] [address] Americo Faria, BRADEN [facility] [place] [address] Chromosomal abnormality (Primary Dx) Social History Tobacco [...] Description 03/25/2025 3:00 PM EST Office Visit [facility] Endocrinology Clinic [address] [place] [address] [place] [address] Marge Novak MD [address] [place] [address] 04/13/2025 10:00 AM EST Office Visit [facility] Genitourinary Oncology Genetics [address] [facility], 7th Floor, [address] [place] [address] Claudio Franklin MD [address] [place] [address] [phone] [place] [address] [email or web address] documented as of this encounter Results * US Kidneys (11/01/2023 11:57 AM EDT) Anatomical Region Laterality Modality Abdomen, Kidney Ultrasound 11/01/2023 3:09 PM EDT Impressions 11/01/2023 3:17 PM EDT 1. No obvious sonographic abnormality of the kidneys. 2. Decompressed bladder. Narrative 11/01/2023 3:17 PM EDT US KIDNEYS Referring clinician's provided indication for this examination in [facility]: Outside Radiology Order; chromosomal abnormality, uspecified TECHNIQUE: [...] clinician's provided indication for this examination in [facility]:Outside Radiology Order; chromosomal abnormality, uspecified TECHNIQUE: Kidney [...] chromosome documented in this encounter Care Teams Water Engineer Relationship Specialty Start Date End Date Americo Faria NP [facility] [place] [address] PCP - General Family Medicine 07/05/21 documented as of this encounter Additional Source Comments The information contained in this document represents components of the legal health record. It is not the complete legal health record.[facility]
--- OUTSIDE RECORDS SUMMARY | 2025-03-17 16:27 | XMS_ITS | Clinical Summary ---
Author Organization [facility] Address [address] [place] [address] Phone Care Team Providers Care Epic Trainer Name Role Phone Unavailable Primary Care Provider [...]
--- OUTSIDE RECORDS SUMMARY | 2025-03-17 16:27 | XMS_ITS | Encounter Summary ---
Author Organization [facility] Address [address] [place] [address] Phone Care Team Providers Care Knockout Machine Operator Name Role Phone Americo Faria NP Primary Care Provider + Encounter Details Date Type Department Care Team (Late st Contact Info) Description 07/06/2023 Procedure Pass [facility], [address] [place] [address] Social History Tobacco Use Types Packs/Day Years [...] Description 03/25/2025 3:00 PM EST Office Visit [facility] Endocrinology Clinic [address] [place] [address] Marge Novak MD 22 [facility] [address] [place] [address] [email or web address] 04/13/2025 10:00 AM EST Office Visit [facility] Genitourinary Oncology Genetics [address] [place] [address], 7th Floor, [address] [place] [address] Claudio Franlkin MD 55 [facility] [phone] [place] [address] [email or web address] documented as of this encounter Visit Diagnoses Not on filedocumented in this encounter Care Teams Knockout Machine Operator Relationship Specialty Start Date End Date Americo Faria NP [address] [facility] [place] [address] PCP - General Family Medicine 07/05/21 documented as of this encounter Additional Source Comments The information contained in this document represents components of the legal health record. It is not the complete legal health record.[facility]
--- OUTSIDE RECORDS SUMMARY | 2025-03-17 16:27 | XMS_ITS | Encounter Summary ---
Author Organization [facility] Address [address] [place] [address] Phone Care Team Providers Care Single Fold Machine Operator Name Role Phone Americo Faria NP Primary Care Provider + Encounter Details Date Type Department Care Team (Late st Contact Info) Description 08/12/2022 Procedure Pass [facility], Ct Scan - [address] [address] Social History Tobacco Use Types Packs/Day Years [...] Description 03/25/2025 3:00 PM EST Office Visit [facility] Endocrinology Clinic [address] [place] [address] Marge Novak MD 22 [facility] [address] [place] [address] 04/13/2025 10:00 AM EST Office Visit [facility] Genitourinary Oncology Genetics [address] [place] [address], 7th Floor, [address] [place] [address] Claudio Franklin MD 55 [facility] [id number] [place] [address] [email or web address] documented as of this encounter Visit Diagnoses Not on filedocumented in this encounter Care Teams Single Fold Machine Operator Relationship Specialty Start Date End Date Americo Faria NP [facility] [place] [address] PCP - General Family Medicine 07/05/21 documented as of this encounter Additional Source Comments The information contained in this document represents components of the legal health record. It is not the complete legal health record.[facility]
--- OUTSIDE RECORDS SUMMARY | 2025-03-17 16:27 | XMS_ITS | Clinical Summary ---
Author Organization [facility] Address [address] [place] [address] Phone Care Team Providers Care Chemical Weigher Name Role Phone Americo Faria NP Primary [...] with longstanding PCOS transferring endocrine care from central supply clerk in [place]. She would like to get help regulate [...] Encounters Date Type Department Care Team Description 03/09/2025 Telephone [facility] [address] [facility], 10th Floor, [address] [place] [address] Teresa Wells Results (Cancer Genetics) from Last 3 Months Immunizations Immunization Administration [...] Description 03/25/2025 3:00 PM EST Office Visit [facility] Endocrinology Clinic [address] [place] [address] Marge Novak MD 22 [facility] [address] [place] [address] [email or web address] 04/13/2025 10:00 AM EST Office Visit [facility] [place] [facility] Genitourinary Oncology Genetics [address] [facility], 7th Floor, [address] [place] [address] Claudio Franklin MD [address] [place] [address] [id number] [place] [address] [email or web address] Health Maintenance Due Date Last Done Comments [...] Date/Time Associated Diagnosis Comments COMPREHENSIVE METABOLIC PANEL (CMP) Routine 04/14/2024 4:08 PM EST Polycystic ovarian syndrome from Last 3 Months or Most Recently Relevant to Health Maintenance Results * Comprehensive metabolic panel (04/14/2024 4:08 PM EST) SODIUM 138 133 - 146 mmol/L [facility] POTASSIUM 3.7 3.3 - 5.1 mmol/L [facility] CHLORIDE 101 96 - 108 mmol/L [facility] CO2 27 21 - 35 mmol/L [facility] BUN 11 6 - 19 mg/dL [facility] CREATININE 0.70 0.5 - 1.5 mg/dL [facility] GLUCOSE 84 70 - 99 mg/dL [facility] ALBUMIN 4.3 3.9 - 4.8 g/dL [facility] TOTAL PROTEIN 7.7 6.5 - 8.0 g/dL [facility] CALCIUM 9.3 8.4 - 10.3 mg/dL [facility] ALKALINE PHOSPHATASE 89 39 - 117 U/L [facility] TOTAL BILIRUBIN 0.4 0.0 - 1.2 mg/dL [facility] AST 17 0 - 37 U/L [facility] ALT 17 0 - 40 U/L [facility] GLOBULIN 3.4 1 - 4.8 g/dL [facility] EGFR 115 >59 mL/min/1.7 3m2 [facility] Comment:Estimated glomerular filtration rate calculated using the CKD-EPI refit equation. ANION GAP 14 10 - 20 mmol/L [facility] Blood 04/14/2024 4:08 PM EST 04/14/2024 4:10 PM EST Jose Luis VAIL LAB BLOOD BKR ORD ERABLES Final Result [facility] [address] [place] [address] from Last 3 Months or Most Recently Relevant to Health Maintenance Insurance DIRECT Advance Directives For more information, please contact: [phone] (9AM - 5PM [facility], Sunday-Sunday) Documents on File Type Date Recorded Patient Typing Secretary Expl anation Healthcare Proxy 10/02/2023 3:35 PM Care Teams Chemical Weigher Relationship Specialty Start Date End Date Americo Faria NP [address] [facility] [place] [address] PCP - General Family Medicine 07/05/21 Additional Source Comments The information contained in this document represents components of the legal health record. It is not the complete legal health record.[facility]
--- OUTSIDE RECORDS SUMMARY | 2025-03-17 16:27 | XMS_ITS | Encounter Summary ---
Author Organization [facility] Address [address] [place] [address] Phone Care Team Providers Care School Speech Therapist Name Role Phone Americo Faria NP Primary Care Provider + Encounter Details Date Type Department Care Team (Late st Contact Info) Description 08/12/2022 Procedure Pass [facility], Ct Scan - [address] [address] Social History Tobacco Use Types Packs/Day Years [...] Description 03/25/2025 3:00 PM EST Office Visit [facility] Endocrinology Clinic [address] [place] [address] Marge Novak MD 22 [facility] [address] [place] [address] 04/13/2025 10:00 AM EST Office Visit [facility] Genitourinary Oncology Genetics [address] [place] [address], 7th Floor, [address] [place] [address] Claudio Franklin MD 55 [facility] [phone] [place] [address] [email or web address] documented as of this encounter Visit Diagnoses Not on filedocumented in this encounter Care Teams School Speech Therapist Relationship Specialty Start Date End Date Americo Faria NP [facility] [address] PCP - General Family Medicine 07/05/21 documented as of this encounter Additional Source Comments The information contained in this document represents components of the legal health record. It is not the complete legal health record.[facility]
--- OUTSIDE RECORDS SUMMARY | 2025-03-17 16:27 | XMS_ITS | Encounter Summary ---
Author Organization [facility] Address [address] [place] [address] Phone Care Team Providers Care Supervisor Slitting And Shipping Name Role Phone Americo Faria NP Primary Care Provider + Encounter Details Date Type Department Care Team (Late st Contact Info) Description 08/12/2022 Procedure Pass [facility], Ct Scan - [address] [address] Social History Tobacco Use Types Packs/Day Years [...] 03/25/2025 3:00 PM EST Office Visit [facility] Endocrinology Clinic [address] [place] [address] Marge Novak MD 22 [facility] [address] [place] [address] 04/13/2025 10:00 AM EST Office Visit [facility] Genitourinary Oncology Genetics [address] [place] [address], 7th Floor, [address] [place] [address] Claudio Franklin MD 55 [facility] [phone] [place] [address] [email or web address] documented as of this encounter Visit Diagnoses Not on filedocumented in this encounter Care Teams Supervisor Slitting And Shipping Relationship Specialty Start Date End Date Americo Faria NP [facility] [place] [address] PCP - General Family Medicine 07/05/21 documented as of this encounter Additional Source Comments The information contained in this document represents components of the legal health record. It is not the complete legal health record.[facility]
--- OUTSIDE RECORDS SUMMARY | 2025-03-17 16:27 | XMS_ITS | Encounter Summary ---
Author Organization [facility] Address [address] [place] [address] Phone Care Team Providers Care Vice President Sales And Marketing Name Role Phone Abimbola Oates MD Primary Care Provider [phone] Encounter Details Date Type Department Care Team (Late st Contact Info) Description 11/02/2016 Conversion Encounter [facility] [address] [place] [address] Social History Tobacco Use Types Packs/Day Years [...] on filedocumented in this encounter Care Teams Vice President Sales And Marketing Relationship Specialty Start Date End Date Abimbola Oates MD [address] [place] [address] PCP - General 10/27/16 09/17/22 documented as of this encounter
== END 2025-03-17 14:02 | disposition home or self-care (01) ==
LOC: HO.HSMS 12:29
PROVIDERS: PCP Nurse Practitioner Family; Visit Provider Nurse Practitioner Family
DX: G44.329 Chronic post-traumatic headache, not intractable (principal); F07.81 Postconcussional syndrome; R41.89 Other symptoms and signs involving cognitive functions and awareness; G51.32 Clonic hemifacial spasm, left; R25.2 Cramp and spasm; G47.19 Other hypersomnia; R06.83 Snoring; G47.9 Sleep disorder, unspecified; G25.81 Restless legs syndrome; G43.009 Migraine without aura, not intractable, without status migrainosus
CPT/HCPCS: 99214